=== PATIENT | female | born 1950 | race Caucasian/White ===

== ENCOUNTER → 2016-08-08 | Outpatient (CLI) | payer OTHER ==
[~2016-08-08] MED LIST: AMOX1TAB64 PO; ASCO10007 PO; CALC1CAP8 PO; CETI10CA PO; CHOL2000 PO; CITA40TA12 PO; CYAN25003 PO; DICL100T PO; FLUT9.9S NAS; HYDR-3138 PO; INDO50CA PO; LEVO100T41 PO; LEVO100T5 PO; LOPE1TAB4 PO; LORA-445 PO; LUTE20TA PO; OMEP-110 PO; OMEP20TA62 PO; ONDA8TAB16 SL; OXYC1TAB8 PO; PRED10TA PO; SIMV40TA PO; SIMV5TAB PO; SPIR25TA PO; SPIR25TA3 PO; TEMA30CA6 PO; VITA1CAP PO; VITA400C40 PO; WHEA1POW5 PO; voltaren PO
[2016-08-08 10:26] LABS: HEMOGLOBIN 14.1 g/dL (11.7-16.4)
[2016-08-08 10:43] LABS: BLOOD UREA NITROGEN 11 mg/dL (7-18)
[2016-08-08 10:47] LABS: ASPARTATE AMINO TRANSFERASE 19 U/L (15-37)
[2016-08-08 11:39] LABS: DIFF TOTAL CELLS COUNTED 100 CELL DIFF
[2016-08-08 11:40] LABS: VERIFY COUNTS? YES
== END | disposition home or self-care (01) ==
LOC: LAB 09:59
PROVIDERS: ATTEND Specialist
DX: M35.3 Polymyalgia rheumatica (principal); Z92.25 Personal history of immunosuppression therapy
CPT/HCPCS: 36415; 80053; 85025

== ENCOUNTER → 2016-08-20 | Outpatient (CLI) | payer OTHER ==
[2016-08-20 13:00] LABS: BLOOD UREA NITROGEN 7 mg/dL (7-18)
== END | disposition home or self-care (01) ==
LOC: LAB 12:38
PROVIDERS: ATTEND Family Medicine
DX: E87.1 Hypo-osmolality and hyponatremia (principal)
CPT/HCPCS: 36415; 80048

== ENCOUNTER → 2016-09-06 | Outpatient (CLI) | payer OTHER ==
[2016-09-06 08:24] LABS: ASPARTATE AMINO TRANSFERASE 15 U/L (15-37); BLOOD UREA NITROGEN 12 mg/dL (7-18)
== END | disposition home or self-care (01) ==
LOC: LAB 07:54
PROVIDERS: ATTEND Specialist
DX: M35.3 Polymyalgia rheumatica (principal); Z92.25 Personal history of immunosuppression therapy
CPT/HCPCS: 36415; 80053; 85025

== ENCOUNTER → 2016-10-01 | Outpatient (CLI) | payer OTHER ==
[2016-10-01 12:19] LABS: BLOOD UREA NITROGEN 13 mg/dL (7-18)
[2016-10-01 12:22] LABS: ASPARTATE AMINO TRANSFERASE 24 U/L (15-37)
== END | disposition home or self-care (01) ==
LOC: LAB 09:13
PROVIDERS: ATTEND Family Medicine
DX: E87.1 Hypo-osmolality and hyponatremia (principal)
CPT/HCPCS: 36415; 80053

== ENCOUNTER → 2016-11-20 | Outpatient (CLI) | payer OTHER ==
[~2016-11-20] MED LIST changes: -VITA400C40 PO; +VITA400C43 PO
[2016-11-20 09:20] LABS: ASPARTATE AMINO TRANSFERASE 13 U/L (15-37); BLOOD UREA NITROGEN 25 mg/dL (7-18)
== END | disposition home or self-care (01) ==
LOC: LAB 08:51
PROVIDERS: ATTEND Specialist
DX: M35.3 Polymyalgia rheumatica (principal); Z92.25 Personal history of immunosuppression therapy
CPT/HCPCS: 36415; 80053; 85025

== ENCOUNTER → 2017-01-10 | Outpatient (CLI) | payer OTHER ==
[~2017-01-10] MED LIST changes: +ASCO100019 PO; -ASCO10007 PO; -HYDR-3138 PO; +HYDR-3237 PO; -LEVO100T41 PO; +LEVO100T74 PO
[2017-01-10 09:16] LABS: HEMATOCRIT 37.5 % (34.6-47.8); WHITE BLOOD COUNT 11.2 x10^3/uL (3.4-10)
[2017-01-10 09:27] LABS: ASPARTATE AMINO TRANSFERASE 11 U/L (15-37); BLOOD UREA NITROGEN 19 mg/dL (7-18)
== END | disposition home or self-care (01) ==
LOC: LAB 08:58
PROVIDERS: ATTEND Specialist
DX: M35.3 Polymyalgia rheumatica (principal); Z92.25 Personal history of immunosuppression therapy
CPT/HCPCS: 36415; 80053; 85025

== ENCOUNTER → 2017-04-17 | Outpatient (CLI) | payer OTHER ==
[2017-04-17 09:05] LABS: HEMATOCRIT 36.1 % (34.6-47.8); HEMOGLOBIN 12.4 g/dL (11.7-16.4); WHITE BLOOD COUNT 5.6 x10^3/uL (3.4-10)
[2017-04-17 09:20] LABS: BLOOD UREA NITROGEN 18 mg/dL (7-18)
[2017-04-17 09:23] LABS: ASPARTATE AMINO TRANSFERASE 41 U/L (15-37)
== END | disposition home or self-care (01) ==
LOC: LAB 08:39
PROVIDERS: ATTEND Specialist
DX: M35.3 Polymyalgia rheumatica (principal); Z92.25 Personal history of immunosuppression therapy
CPT/HCPCS: 36415; 80053; 85025

== ENCOUNTER → 2017-06-03 | Outpatient (CLI) | payer OTHER ==
[2017-06-03 08:27] LABS: BASOPHILS # (AUTO) 0.02 x10^3/uL (0-0.1); BASOPHILS % (AUTO) 0 % (0-1); EOSINOPHILS # (AUTO) 0.06 x10^3/uL (0-0.4); EOSINOPHILS % (AUTO) 1 % (1-7); LYMPHOCYTES # (AUTO) 1.16 x10^3/uL (1-3.4); LYMPHOCYTES % (AUTO) 16 % (22-44); MD NO; MEAN CORPUSCULAR HEMOGLOBIN 31.9 pg (27.0-34.8); MEAN CORPUSCULAR HGB CONC 33.3 g/dL (32.4-35.8); MEAN CORPUSCULAR VOLUME 95.6 fL (80-100); MEAN PLATELET VOLUME 7.7 fL (7.4-10.4); MONOCYTES # (AUTO) 0.47 x10^3/uL (0.2-0.8); MONOCYTES % (AUTO) 7 % (2-9); NEUTROPHILS # (AUTO) 5.48 x10^3/uL (1.8-6.8); NEUTROPHILS % (AUTO) 76 % (42-75); PLATELET COUNT 439 x10^3/uL (130-400); RED BLOOD COUNT 4.01 x10^6/uL (3.82-5.3); RED CELL DISTRIBUTION WIDTH 14.2 % (9.6-15.2)
[2017-06-03 08:39] LABS: ALANINE AMINOTRANSFERASE 72 U/L (12-78); ALBUMIN 3.9 g/dL (3.4-5.0); ANION GAP 4 mmol/L (5-15); CALCIUM 8.9 mg/dL (8.5-10.1); CREATININE 1.24 mg/dL (0.55-1.02)
[2017-06-03 08:41] LABS: ALKALINE PHOSPHATASE 76 U/L (45-117); BILIRUBIN,TOTAL 0.4 mg/dL (0.2-1.0); TOTAL PROTEIN 7.3 g/dL (6.4-8.2)
[2017-06-03 09:02] LABS: CHLORIDE 105 mmol/L (98-107)
== END | disposition home or self-care (01) ==
LOC: LAB 08:16
PROVIDERS: ATTEND Specialist
DX: M35.3 Polymyalgia rheumatica (principal); Z92.25 Personal history of immunosuppression therapy
CPT/HCPCS: 36415; 80053; 85025

== ENCOUNTER → 2017-06-18 | Outpatient (CLI) | payer OTHER | END | disposition home or self-care (01) | LOC: CFH 08:00 | PROVIDERS: ATTEND Specialist | DX: Z12.31 Encounter for screening mammogram for malignant neoplasm of breast (principal); Z13.820 Encounter for screening for osteoporosis; M85.88 Other specified disorders of bone density and structure, other site; M81.0 Age-related osteoporosis without current pathological fracture | CPT/HCPCS: 77063; 77080; 77067 ==

== ENCOUNTER → 2017-06-27 | Outpatient (CLI) | payer OTHER | LOC: CVU 14:28 | PROVIDERS: ATTEND Family Medicine | DX: R60.0 Localized edema (principal); I10 Essential (primary) hypertension; E66.9 Obesity, unspecified | CPT/HCPCS: 93306; 93970 ==

== ENCOUNTER → 2017-07-02 | Outpatient (CLI) | payer OTHER ==
[2017-07-02 09:34] LABS: BASOPHILS # (AUTO) 0.03 x10^3/uL (0-0.1); BASOPHILS % (AUTO) 0 % (0-1); EOSINOPHILS # (AUTO) 0.08 x10^3/uL (0-0.4); EOSINOPHILS % (AUTO) 1 % (1-7); LYMPHOCYTES # (AUTO) 1.45 x10^3/uL (1-3.4); LYMPHOCYTES % (AUTO) 18 % (22-44); MD NO; MEAN CORPUSCULAR HEMOGLOBIN 32.3 pg (27.0-34.8); MEAN CORPUSCULAR HGB CONC 33.8 g/dL (32.4-35.8); MEAN CORPUSCULAR VOLUME 95.3 fL (80-100); MEAN PLATELET VOLUME 7.8 fL (7.4-10.4); MONOCYTES # (AUTO) 0.45 x10^3/uL (0.2-0.8); MONOCYTES % (AUTO) 6 % (2-9); NEUTROPHILS # (AUTO) 6.09 x10^3/uL (1.8-6.8); NEUTROPHILS % (AUTO) 75 % (42-75); PLATELET COUNT 478 x10^3/uL (130-400); RED BLOOD COUNT 4.01 x10^6/uL (3.82-5.3); RED CELL DISTRIBUTION WIDTH 13.6 % (9.6-15.2)
[2017-07-02 09:46] LABS: ALANINE AMINOTRANSFERASE 32 U/L (12-78); ALBUMIN 3.8 g/dL (3.4-5.0); ANION GAP 9 mmol/L (5-15); CALCIUM 9.1 mg/dL (8.5-10.1); CHLORIDE 101 mmol/L (98-107); CHOLESTEROL, TOTAL 116 mg/dL (140-239); TRIGLYCERIDES 125 mg/dL (50-200); VLDL CHOLESTEROL 25 mg/dL (0-25)
[2017-07-02 09:48] LABS: ALKALINE PHOSPHATASE 75 U/L (45-117); BILIRUBIN,TOTAL 0.5 mg/dL (0.2-1.0); HDL CHOLESTEROL (DIRECT) 61 mg/dL (40-60); TOTAL PROTEIN 7.4 g/dL (6.4-8.2)
[2017-07-02 13:50] LABS: CHOL/HDL RATIO 1.9; HDL CHOL % 53 % (28-40); LDL CHOLESTEROL,CALCULATED 30 mg/dL (54-169); LDL/HDL RATIO 0.5 (0.5-3.0)
== END ==
LOC: LAB 09:13
PROVIDERS: ATTEND Specialist
DX: M35.3 Polymyalgia rheumatica (principal); E78.5 Hyperlipidemia, unspecified; E83.51 Hypocalcemia; Z92.25 Personal history of immunosuppression therapy
CPT/HCPCS: 36415; 80053; 80061; 85025

== ENCOUNTER → 2017-12-24 | Outpatient (CLI) | payer OTHER ==
[~2017-12-24] MED LIST changes: -INDO50CA PO; +INDO50CA5 PO; -SPIR25TA3 PO; +SPIR25TA5 PO
[2017-12-24 08:22] LABS: BASOPHILS % (AUTO) 0 % (0-1); EOSINOPHILS # (AUTO) 0.14 x10^3/uL (0-0.4); EOSINOPHILS % (AUTO) 2 % (1-7); LYMPHOCYTES # (AUTO) 1.41 x10^3/uL (1-3.4); LYMPHOCYTES % (AUTO) 19 % (22-44); MD NO; MEAN CORPUSCULAR HEMOGLOBIN 32.3 pg (27.0-34.8); MEAN CORPUSCULAR HGB CONC 33.9 g/dL (32.4-35.8); MEAN CORPUSCULAR VOLUME 95.2 fL (80-100); MONOCYTES # (AUTO) 0.24 x10^3/uL (0.2-0.8); MONOCYTES % (AUTO) 3 % (2-9); NEUTROPHILS # (AUTO) 5.76 x10^3/uL (1.8-6.8); NEUTROPHILS % (AUTO) 76 % (42-75); PLATELET COUNT 479 x10^3/uL (130-400); RED BLOOD COUNT 3.65 x10^6/uL (3.82-5.3); RED CELL DISTRIBUTION WIDTH 14.5 % (9.6-15.2)
[2017-12-24 08:35] LABS: ALANINE AMINOTRANSFERASE 77 U/L (12-78); ALBUMIN 3.7 g/dL (3.4-5.0); ANION GAP 7 mmol/L (5-15); CALCIUM 8.3 mg/dL (8.5-10.1); CHLORIDE 103 mmol/L (98-107); CREATININE 1.36 mg/dL (0.55-1.02)
[2017-12-24 08:37] LABS: ALKALINE PHOSPHATASE 140 U/L (45-117); BILIRUBIN,TOTAL 0.3 mg/dL (0.2-1.0); TOTAL PROTEIN 7.8 g/dL (6.4-8.2)
== END | disposition home or self-care (01) ==
LOC: LAB 08:09
PROVIDERS: ATTEND Specialist
DX: E03.9 Hypothyroidism, unspecified (principal); M81.0 Age-related osteoporosis without current pathological fracture; M35.00 Sjogren syndrome, unspecified; M35.3 Polymyalgia rheumatica; Z92.25 Personal history of immunosuppression therapy
CPT/HCPCS: 36415; 80053; 85025

== ENCOUNTER → 2018-02-05 | Outpatient (CLI) | payer OTHER ==
[2018-02-05 11:41] LABS: BASOPHILS # (AUTO) 0.02 x10^3/uL (0-0.1); BASOPHILS % (AUTO) 0 % (0-1); EOSINOPHILS # (AUTO) 0.14 x10^3/uL (0-0.4); EOSINOPHILS % (AUTO) 2 % (1-7); LYMPHOCYTES # (AUTO) 1.64 x10^3/uL (1-3.4); LYMPHOCYTES % (AUTO) 19 % (22-44); MD NO; MEAN CORPUSCULAR HEMOGLOBIN 33.1 pg (27.0-34.8); MEAN CORPUSCULAR HGB CONC 34.2 g/dL (32.4-35.8); MEAN CORPUSCULAR VOLUME 96.8 fL (80-100); MEAN PLATELET VOLUME 7.6 fL (7.4-10.4); MONOCYTES # (AUTO) 0.43 x10^3/uL (0.2-0.8); MONOCYTES % (AUTO) 5 % (2-9); NEUTROPHILS # (AUTO) 6.21 x10^3/uL (1.8-6.8); NEUTROPHILS % (AUTO) 74 % (42-75); PLATELET COUNT 428 x10^3/uL (130-400); RED BLOOD COUNT 3.37 x10^6/uL (3.82-5.3); RED CELL DISTRIBUTION WIDTH 14.8 % (9.6-15.2)
[2018-02-05 11:51] LABS: ALANINE AMINOTRANSFERASE 41 U/L (12-78); ALBUMIN 3.7 g/dL (3.4-5.0); ANION GAP 8 mmol/L (5-15); CALCIUM 8.2 mg/dL (8.5-10.1); CHLORIDE 105 mmol/L (98-107); CREATININE 1.24 mg/dL (0.55-1.02)
[2018-02-05 11:53] LABS: ALKALINE PHOSPHATASE 107 U/L (45-117); BILIRUBIN,TOTAL 0.3 mg/dL (0.2-1.0); TOTAL PROTEIN 7.4 g/dL (6.4-8.2)
== END | disposition home or self-care (01) ==
LOC: LAB 11:16
PROVIDERS: ATTEND Specialist
DX: E03.9 Hypothyroidism, unspecified (principal); M35.00 Sjogren syndrome, unspecified; M35.3 Polymyalgia rheumatica; M81.0 Age-related osteoporosis without current pathological fracture; Z92.25 Personal history of immunosuppression therapy
CPT/HCPCS: 36415; 80053; 85025

== ENCOUNTER → 2018-03-02 | Outpatient (CLI) | payer OTHER ==
[2018-03-02 09:40] LABS: BASOPHILS # (AUTO) 0.02 x10^3/uL (0-0.1); BASOPHILS % (AUTO) 0 % (0-1); EOSINOPHILS # (AUTO) 0.15 x10^3/uL (0-0.4); EOSINOPHILS % (AUTO) 2 % (1-7); LYMPHOCYTES # (AUTO) 1.22 x10^3/uL (1-3.4); LYMPHOCYTES % (AUTO) 16 % (22-44); MD NO; MEAN CORPUSCULAR HEMOGLOBIN 32.4 pg (27.0-34.8); MEAN CORPUSCULAR HGB CONC 33.3 g/dL (32.4-35.8); MEAN CORPUSCULAR VOLUME 97.4 fL (80-100); MEAN PLATELET VOLUME 7.6 fL (7.4-10.4); MONOCYTES # (AUTO) 0.58 x10^3/uL (0.2-0.8); MONOCYTES % (AUTO) 8 % (2-9); NEUTROPHILS # (AUTO) 5.52 x10^3/uL (1.8-6.8); NEUTROPHILS % (AUTO) 74 % (42-75); PLATELET COUNT 416 x10^3/uL (130-400); RED BLOOD COUNT 3.73 x10^6/uL (3.82-5.3)
[2018-03-02 09:54] LABS: IRON LEVEL 70 mcg/dL (50-170)
[2018-03-02 10:20] LABS: % IRON SATURATION 18 % (20-55); FREE T4 (FREE THYROXINE) 1.18 ng/dL (0.76-1.46); TOTAL IRON BINDING CAPACITY 383 mcg/dL (250-450)
[2018-03-02 10:22] LABS: FOLATE LEVEL > 20.0 ng/mL (3.1-17.5)
== END | disposition home or self-care (01) ==
LOC: LAB 09:18
PROVIDERS: ATTEND Family Medicine
DX: D64.9 Anemia, unspecified (principal); E03.9 Hypothyroidism, unspecified
CPT/HCPCS: 36415; 82607; 82728; 82746; 83540; 83550; 84439; 84443; 84480; 85025

== ENCOUNTER → 2018-04-16 | Outpatient (CLI) | payer OTHER ==
[2018-04-16 08:16] LABS: BASOPHILS # (AUTO) 0.01 x10^3/uL (0-0.1); BASOPHILS % (AUTO) 0 % (0-1); EOSINOPHILS # (AUTO) 0.11 x10^3/uL (0-0.4); EOSINOPHILS % (AUTO) 2 % (1-7); LYMPHOCYTES # (AUTO) 1.36 x10^3/uL (1-3.4); LYMPHOCYTES % (AUTO) 18 % (22-44); MD NO; MEAN CORPUSCULAR HEMOGLOBIN 32.7 pg (27.0-34.8); MEAN CORPUSCULAR HGB CONC 33.7 g/dL (32.4-35.8); MEAN CORPUSCULAR VOLUME 96.9 fL (80-100); MEAN PLATELET VOLUME 7.4 fL (7.4-10.4); MONOCYTES # (AUTO) 0.41 x10^3/uL (0.2-0.8); MONOCYTES % (AUTO) 5 % (2-9); NEUTROPHILS % (AUTO) 75 % (42-75); PLATELET COUNT 536 x10^3/uL (130-400); RED BLOOD COUNT 3.68 x10^6/uL (3.82-5.3); RED CELL DISTRIBUTION WIDTH 14.3 % (9.6-15.2)
[2018-04-16 08:29] LABS: ALANINE AMINOTRANSFERASE 63 U/L (12-78); ANION GAP 9 mmol/L (5-15); CALCIUM 8.5 mg/dL (8.5-10.1); CHLORIDE 101 mmol/L (98-107); CREATININE 1.25 mg/dL (0.55-1.02)
[2018-04-16 08:31] LABS: ALKALINE PHOSPHATASE 105 U/L (45-117); BILIRUBIN,TOTAL 0.4 mg/dL (0.2-1.0); TOTAL PROTEIN 7.8 g/dL (6.4-8.2)
== END | disposition home or self-care (01) ==
LOC: LAB 08:06
PROVIDERS: ATTEND Specialist
DX: E03.9 Hypothyroidism, unspecified (principal); M35.00 Sjogren syndrome, unspecified; M35.3 Polymyalgia rheumatica; M81.0 Age-related osteoporosis without current pathological fracture; Z92.25 Personal history of immunosuppression therapy
CPT/HCPCS: 36415; 80053; 85025

== ENCOUNTER → 2018-05-15 | Outpatient (CLI) | payer OTHER ==
[2018-05-15 08:55] LABS: BASOPHILS # (AUTO) 0.02 x10^3/uL (0-0.1); BASOPHILS % (AUTO) 0 % (0-1); EOSINOPHILS # (AUTO) 0.15 x10^3/uL (0-0.4); EOSINOPHILS % (AUTO) 2 % (1-7); LYMPHOCYTES # (AUTO) 1.32 x10^3/uL (1-3.4); LYMPHOCYTES % (AUTO) 17 % (22-44); MD NO; MEAN CORPUSCULAR HEMOGLOBIN 32.3 pg (27.0-34.8); MEAN CORPUSCULAR VOLUME 97.9 fL (80-100); MEAN PLATELET VOLUME 7.6 fL (7.4-10.4); MONOCYTES # (AUTO) 0.38 x10^3/uL (0.2-0.8); MONOCYTES % (AUTO) 5 % (2-9); NEUTROPHILS # (AUTO) 5.79 x10^3/uL (1.8-6.8); NEUTROPHILS % (AUTO) 76 % (42-75); PLATELET COUNT 459 x10^3/uL (130-400); RED BLOOD COUNT 3.59 x10^6/uL (3.82-5.3); RED CELL DISTRIBUTION WIDTH 14.7 % (9.6-15.2)
[2018-05-15 09:07] LABS: ALANINE AMINOTRANSFERASE 51 U/L (12-78); ALBUMIN 3.7 g/dL (3.4-5.0); ANION GAP 5 mmol/L (5-15); CALCIUM 8.8 mg/dL (8.5-10.1); CHLORIDE 104 mmol/L (98-107); CREATININE 1.19 mg/dL (0.55-1.02)
[2018-05-15 09:10] LABS: ALKALINE PHOSPHATASE 98 U/L (45-117); BILIRUBIN,TOTAL 0.7 mg/dL (0.2-1.0); TOTAL PROTEIN 7.4 g/dL (6.4-8.2)
== END | disposition home or self-care (01) ==
LOC: LAB 08:31
PROVIDERS: ATTEND Specialist
DX: M35.00 Sjogren syndrome, unspecified (principal); M35.3 Polymyalgia rheumatica; M81.0 Age-related osteoporosis without current pathological fracture; E03.9 Hypothyroidism, unspecified; Z92.25 Personal history of immunosuppression therapy
CPT/HCPCS: 36415; 80053; 85025

== ENCOUNTER → 2018-07-30 | Outpatient (CLI) | payer OTHER ==
[2018-07-30 11:49] LABS: BASOPHILS # (AUTO) 0.03 x10^3/uL (0-0.1); BASOPHILS % (AUTO) 0 % (0-1); EOSINOPHILS # (AUTO) 0.13 x10^3/uL (0-0.4); EOSINOPHILS % (AUTO) 1 % (1-7); LYMPHOCYTES % (AUTO) 12 % (22-44); MD NO; MEAN CORPUSCULAR HEMOGLOBIN 32.1 pg (27.0-34.8); MEAN CORPUSCULAR VOLUME 97.2 fL (80-100); MEAN PLATELET VOLUME 7.3 fL (7.4-10.4); MONOCYTES # (AUTO) 0.43 x10^3/uL (0.2-0.8); MONOCYTES % (AUTO) 4 % (2-9); NEUTROPHILS # (AUTO) 9.41 x10^3/uL (1.8-6.8); NEUTROPHILS % (AUTO) 83 % (42-75); PLATELET COUNT 550 x10^3/uL (130-400); RED BLOOD COUNT 3.58 x10^6/uL (3.82-5.3); RED CELL DISTRIBUTION WIDTH 14.9 % (9.6-15.2)
[2018-07-30 11:56] LABS: ALANINE AMINOTRANSFERASE 133 U/L (12-78); ALBUMIN 3.5 g/dL (3.4-5.0); ANION GAP 5 mmol/L (5-15); CALCIUM 8.9 mg/dL (8.5-10.1); CHLORIDE 106 mmol/L (98-107); CREATININE 1.03 mg/dL (0.55-1.02)
[2018-07-30 11:58] LABS: ALKALINE PHOSPHATASE 199 U/L (45-117); BILIRUBIN,TOTAL 0.3 mg/dL (0.2-1.0); TOTAL PROTEIN 7.6 g/dL (6.4-8.2)
== END | disposition home or self-care (01) ==
LOC: LAB 11:25
PROVIDERS: ATTEND Family Medicine
DX: M35.3 Polymyalgia rheumatica (principal); M67.241 Synovial hypertrophy, not elsewhere classified, right hand; Z92.25 Personal history of immunosuppression therapy
CPT/HCPCS: 36415; 80053; 85025

== ENCOUNTER → 2018-08-03 | Outpatient (CLI) | payer OTHER ==
[2018-08-03 09:24] LABS: BASOPHILS # (AUTO) 0.01 x10^3/uL (0-0.1); BASOPHILS % (AUTO) 0 % (0-1); EOSINOPHILS # (AUTO) 0.21 x10^3/uL (0-0.4); EOSINOPHILS % (AUTO) 2 % (1-7); LYMPHOCYTES # (AUTO) 1.21 x10^3/uL (1-3.4); LYMPHOCYTES % (AUTO) 12 % (22-44); MD NO; MEAN CORPUSCULAR HEMOGLOBIN 32.2 pg (27.0-34.8); MEAN CORPUSCULAR HGB CONC 33.1 g/dL (32.4-35.8); MEAN CORPUSCULAR VOLUME 97.4 fL (80-100); MEAN PLATELET VOLUME 7.3 fL (7.4-10.4); MONOCYTES # (AUTO) 0.61 x10^3/uL (0.2-0.8); MONOCYTES % (AUTO) 6 % (2-9); NEUTROPHILS # (AUTO) 7.95 x10^3/uL (1.8-6.8); NEUTROPHILS % (AUTO) 80 % (42-75); PLATELET COUNT 504 x10^3/uL (130-400); RED BLOOD COUNT 3.66 x10^6/uL (3.82-5.3); RED CELL DISTRIBUTION WIDTH 15.1 % (9.6-15.2)
[2018-08-03 09:40] LABS: ALBUMIN 3.9 g/dL (3.4-5.0); ANION GAP 7 mmol/L (5-15); C-REACTIVE PROTEIN, QUANT 0.77 mg/dL (0.02-0.49); CALCIUM 9.2 mg/dL (8.5-10.1); CHLORIDE 106 mmol/L (98-107); GAMMA GLUTAMYL TRANSPEPTIDASE 108 U/L (5-55)
[2018-08-03 09:50] LABS: % IRON SATURATION 18 % (20-55); ALANINE AMINOTRANSFERASE 58 U/L (12-78); ALKALINE PHOSPHATASE 165 U/L (45-117); BILIRUBIN,TOTAL 0.3 mg/dL (0.2-1.0); CREATININE 1.31 mg/dL (0.55-1.02); FREE T4 (FREE THYROXINE) 1.51 ng/dL (0.76-1.46); IRON LEVEL 70 mcg/dL (50-170); TOTAL IRON BINDING CAPACITY 390 mcg/dL (250-450)
[2018-08-03 11:05] LABS: HCT (SEDRATE) 35.7 % (34.6-47.8)
== END | disposition home or self-care (01) ==
LOC: LAB 08:53
PROVIDERS: ATTEND Family Medicine
DX: D64.9 Anemia, unspecified (principal); E03.9 Hypothyroidism, unspecified; R94.5 Abnormal results of liver function studies; Z92.25 Personal history of immunosuppression therapy
CPT/HCPCS: 36415; 80053; 80074; 82390; 82728; 82977; 83540; 83550; 84439; 84443; 84480; 85025; 85651; 86038; 86140; 86200; 86225; 86235; 86430

== ENCOUNTER → 2018-09-03 | Outpatient (CLI) | payer OTHER ==
[2018-09-03 08:41] LABS: BASOPHILS # (AUTO) 0.02 x10^3/uL (0-0.1); BASOPHILS % (AUTO) 0 % (0-1); EOSINOPHILS # (AUTO) 0.11 x10^3/uL (0-0.4); EOSINOPHILS % (AUTO) 1 % (1-7); LYMPHOCYTES # (AUTO) 1.08 x10^3/uL (1-3.4); LYMPHOCYTES % (AUTO) 10 % (22-44); MD NO; MEAN CORPUSCULAR HEMOGLOBIN 32.4 pg (27.0-34.8); MEAN CORPUSCULAR HGB CONC 33.4 g/dL (32.4-35.8); MEAN PLATELET VOLUME 7.4 fL (7.4-10.4); MONOCYTES # (AUTO) 0.38 x10^3/uL (0.2-0.8); MONOCYTES % (AUTO) 4 % (2-9); NEUTROPHILS # (AUTO) 9.42 x10^3/uL (1.8-6.8); NEUTROPHILS % (AUTO) 86 % (42-75); PLATELET COUNT 407 x10^3/uL (130-400); RED BLOOD COUNT 3.41 x10^6/uL (3.82-5.3); RED CELL DISTRIBUTION WIDTH 14.5 % (9.6-15.2)
[2018-09-03 08:45] LABS: ALANINE AMINOTRANSFERASE 216 U/L (12-78); ALBUMIN 3.4 g/dL (3.4-5.0); ANION GAP 5 mmol/L (5-15); CALCIUM 8.7 mg/dL (8.5-10.1); CHLORIDE 105 mmol/L (98-107)
[2018-09-03 08:47] LABS: ALKALINE PHOSPHATASE 113 U/L (45-117); BILIRUBIN,TOTAL 0.7 mg/dL (0.2-1.0); TOTAL PROTEIN 7.1 g/dL (6.4-8.2)
== END | disposition home or self-care (01) ==
LOC: LAB 08:18
PROVIDERS: ATTEND Family Medicine
DX: E03.9 Hypothyroidism, unspecified (principal); M35.00 Sjogren syndrome, unspecified; M35.3 Polymyalgia rheumatica; M81.0 Age-related osteoporosis without current pathological fracture; Z92.25 Personal history of immunosuppression therapy
CPT/HCPCS: 36415; 80053; 85025

== ENCOUNTER → 2018-09-30 | Outpatient (CLI) | payer OTHER ==
[2018-09-30 08:44] LABS: MICROSCOPIC NOT IND
[2018-09-30 08:47] LABS: CULTURE INDICATED? NO
[2018-09-30 09:05] LABS: CREATININE,URINE RANDOM 89.7 mg/dL
[2018-09-30 09:11] LABS: ALANINE AMINOTRANSFERASE 45 U/L (12-78); ANION GAP 6 mmol/L (5-15); CHLORIDE 104 mmol/L (98-107); CREATININE 1.35 mg/dL (0.55-1.02)
[2018-09-30 09:12] LABS: BASOPHILS # (AUTO) 0.01 x10^3/uL (0-0.1); BASOPHILS % (AUTO) 0 % (0-1); EOSINOPHILS # (AUTO) 0.08 x10^3/uL (0-0.4); EOSINOPHILS % (AUTO) 1 % (1-7); LYMPHOCYTES # (AUTO) 1.13 x10^3/uL (1-3.4); LYMPHOCYTES % (AUTO) 13 % (22-44); MD NO; MEAN CORPUSCULAR HEMOGLOBIN 32.9 pg (27.0-34.8); MEAN CORPUSCULAR HGB CONC 33.2 g/dL (32.4-35.8); MEAN CORPUSCULAR VOLUME 98.8 fL (80-100); MEAN PLATELET VOLUME 7.8 fL (7.4-10.4); MONOCYTES # (AUTO) 0.33 x10^3/uL (0.2-0.8); MONOCYTES % (AUTO) 4 % (2-9); NEUTROPHILS # (AUTO) 7.31 x10^3/uL (1.8-6.8); NEUTROPHILS % (AUTO) 83 % (42-75); PLATELET COUNT 432 x10^3/uL (130-400); RED BLOOD COUNT 3.61 x10^6/uL (3.82-5.3); RED CELL DISTRIBUTION WIDTH 14.6 % (9.6-15.2)
[2018-09-30 09:13] LABS: ALKALINE PHOSPHATASE 82 U/L (45-117); BILIRUBIN,TOTAL 0.4 mg/dL (0.2-1.0); TOTAL PROTEIN 7.5 g/dL (6.4-8.2)
[2018-09-30 09:57] LABS: HCT (SEDRATE) 35.7 % (34.6-47.8)
[2018-10-01 13:40] LABS: ANA SCREEN POSITIVE (Negative); ANTI-NUCLEAR ANTIBODY PATTERN SPECKLED
== END | disposition home or self-care (01) ==
LOC: LAB 08:13
PROVIDERS: ATTEND Internal Medicine
DX: M35.3 Polymyalgia rheumatica (principal); M67.241 Synovial hypertrophy, not elsewhere classified, right hand; Z92.25 Personal history of immunosuppression therapy
CPT/HCPCS: 36415; 80053; 81003; 82306; 82570; 84156; 85025; 85651; 86038; 86039; 86140; 86160

== ENCOUNTER 2018-10-09 12:33 | Outpatient (CLI) | payer OTHER | END 2018-10-09 23:59 | disposition home or self-care (01) | LOC: CFH 12:33 | PROVIDERS: ATTEND Internal Medicine | DX: J18.9 Pneumonia, unspecified organism (principal) | CPT/HCPCS: 71046 ==

== ENCOUNTER → 2018-10-22 | Outpatient (CLI) | payer OTHER | END | disposition home or self-care (01) | LOC: RAD 08:19 | PROVIDERS: ATTEND Internal Medicine | DX: J84.89 Other specified interstitial pulmonary diseases (principal); J47.9 Bronchiectasis, uncomplicated | CPT/HCPCS: 71250 ==

== ENCOUNTER → 2018-10-26 | Outpatient (CLI) | payer OTHER | END | disposition home or self-care (01) | LOC: CFH 14:05 | PROVIDERS: ATTEND Family Medicine | DX: Z12.31 Encounter for screening mammogram for malignant neoplasm of breast (principal); M85.89 Other specified disorders of bone density and structure, multiple sites; Z78.0 Asymptomatic menopausal state | CPT/HCPCS: 77080; 77067 ==

== ENCOUNTER 2018-10-27 14:07 | Outpatient (CLI) | payer OTHER | END 2018-10-27 23:59 | disposition home or self-care (01) | LOC: CARD 14:07 | PROVIDERS: ATTEND Internal Medicine | DX: R91.8 Other nonspecific abnormal finding of lung field (principal) | CPT/HCPCS: 94060; 94726; 94729 ==

== ENCOUNTER 2019-03-09 08:49 | Outpatient (CLI) | payer OTHER ==
[~2019-03-09 08:49] MED LIST changes: +INDO50CA15 PO; -INDO50CA5 PO
== END 2019-03-09 23:59 | disposition home or self-care (01) ==
LOC: CFH 08:49
PROVIDERS: ATTEND Internal Medicine Critical Care Medicine
DX: J84.9 Interstitial pulmonary disease, unspecified (principal); J84.10 Pulmonary fibrosis, unspecified; K44.9 Diaphragmatic hernia without obstruction or gangrene; J47.9 Bronchiectasis, uncomplicated; Z82.49 Family history of ischemic heart disease and other diseases of the circulatory system; Z80.8 Family history of malignant neoplasm of other organs or systems; Z80.0 Family history of malignant neoplasm of digestive organs; Z82.5 Family history of asthma and other chronic lower respiratory diseases
CPT/HCPCS: 71250

== ENCOUNTER 2019-03-17 08:45 | Outpatient (CLI) | payer OTHER ==
[2019-03-17 09:17] LABS: BASOPHILS # (AUTO) 0.01 x10^3/uL (0-0.1); BASOPHILS % (AUTO) 0 % (0-1); EOSINOPHILS # (AUTO) 0.06 x10^3/uL (0-0.4); EOSINOPHILS % (AUTO) 0 % (1-7); LYMPHOCYTES # (AUTO) 1.24 x10^3/uL (1-3.4); LYMPHOCYTES % (AUTO) 9 % (22-44); MD NO; MEAN CORPUSCULAR HEMOGLOBIN 32.1 pg (27.0-34.8); MEAN CORPUSCULAR HGB CONC 33.4 g/dL (32.4-35.8); MEAN CORPUSCULAR VOLUME 96.1 fL (80-100); MONOCYTES % (AUTO) 4 % (2-9); NEUTROPHILS # (AUTO) 12.34 x10^3/uL (1.8-6.8); NEUTROPHILS % (AUTO) 87 % (42-75); PLATELET COUNT 338 x10^3/uL (130-400); RED BLOOD COUNT 4.07 x10^6/uL (3.82-5.3); RED CELL DISTRIBUTION WIDTH 13.1 % (9.6-15.2)
[2019-03-17 09:20] LABS: HCT (SEDRATE) 39.1 % (34.6-47.8)
[2019-03-17 09:24] LABS: ALANINE AMINOTRANSFERASE 59 U/L (12-78); ALBUMIN 3.6 g/dL (3.4-5.0); ANION GAP 9 mmol/L (5-15); CALCIUM 8.9 mg/dL (8.5-10.1); CHLORIDE 100 mmol/L (98-107); CREATININE 1.14 mg/dL (0.55-1.02)
[2019-03-17 09:26] LABS: ALKALINE PHOSPHATASE 78 U/L (45-117); BILIRUBIN,TOTAL 0.4 mg/dL (0.2-1.0); TOTAL PROTEIN 7.8 g/dL (6.4-8.2)
== END 2019-03-17 23:59 | disposition home or self-care (01) ==
LOC: LAB 08:45
PROVIDERS: ATTEND Internal Medicine
DX: M06.09 Rheumatoid arthritis without rheumatoid factor, multiple sites (principal); M35.00 Sjogren syndrome, unspecified; Z79.899 Other long term (current) drug therapy; Z91.013 Allergy to seafood; Z88.5 Allergy status to narcotic agent
CPT/HCPCS: 36415; 80053; 85025; 85651; 86140

== ENCOUNTER → 2019-04-08 | Outpatient (CLI) | payer OTHER ==
[2019-04-08 10:43] LABS: ALANINE AMINOTRANSFERASE 41 U/L (12-78); ANION GAP 9 mmol/L (5-15); C-REACTIVE PROTEIN, QUANT 0.12 mg/dL (0.02-0.49); CALCIUM 8.8 mg/dL (8.5-10.1); CHLORIDE 100 mmol/L (98-107); CREATININE 1.18 mg/dL (0.55-1.02)
[2019-04-08 10:45] LABS: ALKALINE PHOSPHATASE 60 U/L (45-117); BILIRUBIN,TOTAL 0.4 mg/dL (0.2-1.0); TOTAL PROTEIN 7.7 g/dL (6.4-8.2)
[2019-04-08 11:02] LABS: BASOPHILS # (AUTO) 0.12 x10^3/uL (0-0.1); BASOPHILS % (AUTO) 1 % (0-1); EOSINOPHILS # (AUTO) 0.25 x10^3/uL (0-0.4); EOSINOPHILS % (AUTO) 2 % (1-7); LYMPHOCYTES % (AUTO) 10 % (22-44); MD NO; MEAN CORPUSCULAR HEMOGLOBIN 32.3 pg (27.0-34.8); MEAN CORPUSCULAR HGB CONC 32.8 g/dL (32.4-35.8); MEAN CORPUSCULAR VOLUME 98.4 fL (80-100); MEAN PLATELET VOLUME 8.3 fL (7.4-10.4); MONOCYTES # (AUTO) 0.52 x10^3/uL (0.2-0.8); MONOCYTES % (AUTO) 4 % (2-9); NEUTROPHILS # (AUTO) 12.46 x10^3/uL (1.8-6.8); NEUTROPHILS % (AUTO) 84 % (42-75); PLATELET COUNT 392 x10^3/uL (130-400); RED CELL DISTRIBUTION WIDTH 13.3 % (9.6-15.2)
[2019-04-08 11:07] LABS: HCT (SEDRATE) 41.3 % (34.6-47.8)
== END | disposition home or self-care (01) ==
LOC: LAB 10:14
PROVIDERS: ATTEND Internal Medicine
DX: M06.09 Rheumatoid arthritis without rheumatoid factor, multiple sites (principal); M35.00 Sjogren syndrome, unspecified; Z79.899 Other long term (current) drug therapy
CPT/HCPCS: 36415; 80053; 85025; 85651; 86140

== ENCOUNTER → 2019-04-19 | Outpatient (CLI) | payer OTHER ==
[~2019-04-19] MED LIST changes: +ALEN70TA6 PO; +AMIT25TA PO; +CLOB15CR19 TP; +FOLI-17 PO; +HYDR200T72 PO; +LISI-167 PO; +MULT-658 PO; +PRED10TA14 PO; +SENN1TAB67 PO; +SODI1TAB PO; +VIT1CAPS9 PO
== END | disposition home or self-care (01) ==
LOC: STAR 15:46
PROVIDERS: ATTEND Family Medicine
DX: Z01.810 Encounter for preprocedural cardiovascular examination (principal)
CPT/HCPCS: 93005

== ENCOUNTER → 2019-04-21 | Outpatient (CLI) | payer OTHER ==
[2019-04-21 10:16] LABS: ALANINE AMINOTRANSFERASE 38 U/L (12-78); ALBUMIN 3.8 g/dL (3.4-5.0); ANION GAP 7 mmol/L (5-15); CALCIUM 9.2 mg/dL (8.5-10.1); CHLORIDE 106 mmol/L (98-107); CREATININE 1.29 mg/dL (0.55-1.02)
[2019-04-21 10:19] LABS: ALKALINE PHOSPHATASE 55 U/L (45-117); BILIRUBIN,TOTAL 0.3 mg/dL (0.2-1.0); TOTAL PROTEIN 7.7 g/dL (6.4-8.2)
[2019-04-21 10:19] LABS: CULTURE INDICATED? NO; MICROSCOPIC NOT IND
[2019-04-21 10:48] LABS: INTERNATIONAL NORMALIZED RATIO 0.92 (0.93-1.1); PROTHROMBIN TIME 9.7 Seconds (9.6-11.5)
[2019-04-21 15:16] LABS: MEAN CORPUSCULAR HEMOGLOBIN 32.6 pg (27.0-34.8); MEAN CORPUSCULAR VOLUME 98.9 fL (80-100); MEAN PLATELET VOLUME 8.5 fL (7.4-10.4); PLATELET COUNT 414 x10^3/uL (130-400); RED CELL DISTRIBUTION WIDTH 13.9 % (9.6-15.2)
[2019-04-21 15:45] LABS: BASOPHILS # (AUTO) 0.02 x10^3/uL (0-0.1); BASOPHILS % (AUTO) 0 % (0-1); EOSINOPHILS # (AUTO) 0.13 x10^3/uL (0-0.4); EOSINOPHILS % (AUTO) 1 % (1-7); LYMPHOCYTES # (AUTO) 1.38 x10^3/uL (1-3.4); LYMPHOCYTES % (AUTO) 9 % (22-44); MD SCAN; MONOCYTES # (AUTO) 0.38 x10^3/uL (0.2-0.8); MONOCYTES % (AUTO) 3 % (2-9); NEUTROPHILS # (AUTO) 13.22 x10^3/uL (1.8-6.8); NEUTROPHILS % (AUTO) 87 % (42-75)
[2019-04-21 15:58] LABS: INTERNATIONAL NORMALIZED RATIO 0.95 (0.93-1.1)
== END | disposition home or self-care (01) ==
LOC: STAR 08:57
PROVIDERS: ATTEND Neurological Surgery
CPT/HCPCS: 36415; 71046; 72110; 80053; 81003; 85025; 85610; 85730

== ENCOUNTER → 2019-06-23 | Outpatient (CLI) | payer OTHER ==
[~2019-06-23] MED LIST changes: +AMLO-150 PO; +ERGO500017 PO; +ONDA4TAB13 PO; +OXYC5CAP2 PO; +TAMS-11 PO; +TRAZ50TA66 PO
== END | disposition home or self-care (01) ==
LOC: CFH 13:49
PROVIDERS: ATTEND Registered Nurse Registered Nurse First Assistant
DX: M48.061 Spinal stenosis, lumbar region without neurogenic claudication (principal); M43.16 Spondylolisthesis, lumbar region; M41.86 Other forms of scoliosis, lumbar region
CPT/HCPCS: 72100

== ENCOUNTER → 2019-07-22 | Outpatient (CLI) | payer OTHER ==
[2019-07-22 13:01] LABS: BASOPHILS # (AUTO) 0.04 x10^3/uL (0-0.1); BASOPHILS % (AUTO) 0 % (0-1); EOSINOPHILS # (AUTO) 0.17 x10^3/uL (0-0.4); EOSINOPHILS % (AUTO) 1 % (1-7); LYMPHOCYTES # (AUTO) 2.68 x10^3/uL (1-3.4); LYMPHOCYTES % (AUTO) 21 % (22-44); MD NO; MEAN CORPUSCULAR HEMOGLOBIN 29.4 pg (27.0-34.8); MEAN CORPUSCULAR HGB CONC 32.5 g/dL (32.4-35.8); MEAN CORPUSCULAR VOLUME 90.5 fL (80-100); MEAN PLATELET VOLUME 8.3 fL (7.4-10.4); MONOCYTES # (AUTO) 0.74 x10^3/uL (0.2-0.8); MONOCYTES % (AUTO) 6 % (2-9); NEUTROPHILS # (AUTO) 9.31 x10^3/uL (1.8-6.8); NEUTROPHILS % (AUTO) 72 % (42-75); PLATELET COUNT 422 x10^3/uL (130-400); RED BLOOD COUNT 4.02 x10^6/uL (3.82-5.3); RED CELL DISTRIBUTION WIDTH 18.7 % (9.6-15.2)
[2019-07-22 13:15] LABS: ALANINE AMINOTRANSFERASE 25 U/L (12-78); ALBUMIN 3.3 g/dL (3.4-5.0); ANION GAP 6 mmol/L (5-15); CALCIUM 8.9 mg/dL (8.5-10.1); CHLORIDE 103 mmol/L (98-107); CREATININE 1.06 mg/dL (0.55-1.02)
[2019-07-22 13:25] LABS: ALKALINE PHOSPHATASE 82 U/L (45-117); FREE T4 (FREE THYROXINE) 1.44 ng/dL (0.76-1.46); TOTAL PROTEIN 7.6 g/dL (6.4-8.2)
[2019-07-22 13:26] LABS: BILIRUBIN,TOTAL < 0.1 mg/dL (0.2-1.0)
== END | disposition home or self-care (01) ==
LOC: CFH 10:01
PROVIDERS: ATTEND Family Medicine
DX: J96.00 Acute respiratory failure, unspecified whether with hypoxia or hypercapnia (principal); E03.9 Hypothyroidism, unspecified; D64.9 Anemia, unspecified
CPT/HCPCS: 36415; 80053; 84439; 84443; 84480; 85025

== ENCOUNTER → 2019-09-28 | Outpatient (CLI) | payer OTHER ==
[2019-09-28 11:13] LABS: BASOPHILS # (AUTO) 0.02 x10^3/uL (0-0.1); BASOPHILS % (AUTO) 0 % (0-1); EOSINOPHILS # (AUTO) 0.01 x10^3/uL (0-0.4); EOSINOPHILS % (AUTO) 0 % (1-7); LYMPHOCYTES # (AUTO) 1.38 x10^3/uL (1-3.4); LYMPHOCYTES % (AUTO) 9 % (22-44); MD NO; MEAN CORPUSCULAR HEMOGLOBIN 29.4 pg (27.0-34.8); MEAN CORPUSCULAR HGB CONC 32.5 g/dL (32.4-35.8); MEAN CORPUSCULAR VOLUME 90.7 fL (80-100); MEAN PLATELET VOLUME 7.8 fL (7.4-10.4); MONOCYTES # (AUTO) 0.35 x10^3/uL (0.2-0.8); MONOCYTES % (AUTO) 2 % (2-9); NEUTROPHILS # (AUTO) 13.67 x10^3/uL (1.8-6.8); NEUTROPHILS % (AUTO) 89 % (42-75); PLATELET COUNT 368 x10^3/uL (130-400); RED BLOOD COUNT 4.34 x10^6/uL (3.82-5.3); RED CELL DISTRIBUTION WIDTH 18.2 % (9.6-15.2)
[2019-09-28 11:36] LABS: CHLORIDE 109 mmol/L (98-107)
[2019-09-28 12:45] LABS: % IRON SATURATION 45 % (20-55); ALANINE AMINOTRANSFERASE 32 U/L (12-78); ALBUMIN 3.6 g/dL (3.4-5.0); ALKALINE PHOSPHATASE 73 U/L (45-117); ANION GAP 7 mmol/L (5-15); BILIRUBIN,TOTAL 0.3 mg/dL (0.2-1.0); CHOL/HDL RATIO 2.1; CHOLESTEROL, TOTAL 193 mg/dL (140-239); CREATININE 1.52 mg/dL (0.55-1.02); FREE T4 (FREE THYROXINE) 1.16 ng/dL (0.76-1.46); HDL CHOL % 49 % (28-40); HDL CHOLESTEROL (DIRECT) 94 mg/dL (40-60); IRON LEVEL 167 mcg/dL (50-170); LDL CHOLESTEROL,CALCULATED 80 mg/dL (54-169); LDL/HDL RATIO 0.9 (0.5-3.0); TOTAL IRON BINDING CAPACITY 375 mcg/dL (250-450); TOTAL PROTEIN 7.4 g/dL (6.4-8.2); TRIGLYCERIDES 95 mg/dL (50-200); VLDL CHOLESTEROL 19 mg/dL (0-25)
== END | disposition home or self-care (01) ==
LOC: LAB 10:52
PROVIDERS: ATTEND Family Medicine
DX: E03.9 Hypothyroidism, unspecified (principal); D64.9 Anemia, unspecified; E78.5 Hyperlipidemia, unspecified; N17.0 Acute kidney failure with tubular necrosis
CPT/HCPCS: 36415; 80053; 80061; 82728; 83540; 83550; 84439; 84443; 84480; 85025

== ENCOUNTER → 2019-11-09 | Outpatient (CLI) | payer OTHER ==
[2019-11-09 08:34] LABS: MEAN CORPUSCULAR HEMOGLOBIN 30.6 pg (27.0-34.8); MEAN CORPUSCULAR HGB CONC 32.3 g/dL (32.4-35.8); MEAN CORPUSCULAR VOLUME 94.5 fL (80-100); MEAN PLATELET VOLUME 7.3 fL (7.4-10.4); PLATELET COUNT 385 x10^3/uL (130-400)
[2019-11-09 10:03] LABS: BASOPHILS # (AUTO) 0.07 x10^3/uL (0-0.1); BASOPHILS % (AUTO) 0 % (0-1); EOSINOPHILS # (AUTO) 0.06 x10^3/uL (0-0.4); EOSINOPHILS % (AUTO) 0 % (1-7); LYMPHOCYTES # (AUTO) 2.85 x10^3/uL (1-3.4); LYMPHOCYTES % (AUTO) 17 % (22-44); MD SCAN; MONOCYTES # (AUTO) 0.86 x10^3/uL (0.2-0.8); MONOCYTES % (AUTO) 5 % (2-9); NEUTROPHILS # (AUTO) 12.89 x10^3/uL (1.8-6.8); NEUTROPHILS % (AUTO) 77 % (42-75)
[2019-11-09 12:37] LABS: ALBUMIN 3.5 g/dL (3.4-5.0); ANION GAP 7 mmol/L (5-15); CALCIUM 9.1 mg/dL (8.5-10.1); CHLORIDE 97 mmol/L (98-107)
[2019-11-09 12:49] LABS: ALANINE AMINOTRANSFERASE 25 U/L (12-78); ALKALINE PHOSPHATASE 70 U/L (45-117); BILIRUBIN,TOTAL 0.3 mg/dL (0.2-1.0); CREATININE 1.34 mg/dL (0.55-1.02); FREE T4 (FREE THYROXINE) 1.29 ng/dL (0.76-1.46); TOTAL PROTEIN 7.7 g/dL (6.4-8.2)
== END | disposition home or self-care (01) ==
LOC: LAB 08:07
PROVIDERS: ATTEND Family Medicine
DX: N17.0 Acute kidney failure with tubular necrosis (principal); D64.9 Anemia, unspecified; E03.9 Hypothyroidism, unspecified
CPT/HCPCS: 36415; 80053; 84439; 84443; 84480; 85025

== ENCOUNTER → 2019-11-10 | Outpatient (CLI) | payer OTHER | END | disposition home or self-care (01) | LOC: LAB 09:34 | PROVIDERS: ATTEND Nurse Practitioner Family | DX: D72.829 Elevated white blood cell count, unspecified (principal); Z79.52 Long term (current) use of systemic steroids | CPT/HCPCS: 87086 ==

== ENCOUNTER → 2019-11-17 | Outpatient (CLI) | payer OTHER ==
[2019-11-17 15:14] LABS: BASOPHILS # (AUTO) 0.07 x10^3/uL (0-0.1); BASOPHILS % (AUTO) 1 % (0-1); EOSINOPHILS # (AUTO) 0.02 x10^3/uL (0-0.4); EOSINOPHILS % (AUTO) 0 % (1-7); LYMPHOCYTES # (AUTO) 1.87 x10^3/uL (1-3.4); LYMPHOCYTES % (AUTO) 13 % (22-44); MD NO; MEAN CORPUSCULAR HEMOGLOBIN 31.8 pg (27.0-34.8); MEAN CORPUSCULAR HGB CONC 33.5 g/dL (32.4-35.8); MEAN CORPUSCULAR VOLUME 94.8 fL (80-100); MEAN PLATELET VOLUME 7.7 fL (7.4-10.4); MONOCYTES # (AUTO) 0.71 x10^3/uL (0.2-0.8); MONOCYTES % (AUTO) 5 % (2-9); NEUTROPHILS # (AUTO) 11.92 x10^3/uL (1.8-6.8); NEUTROPHILS % (AUTO) 82 % (42-75); PLATELET COUNT 432 x10^3/uL (130-400); RED BLOOD COUNT 3.75 x10^6/uL (3.82-5.3); RED CELL DISTRIBUTION WIDTH 14.8 % (9.6-15.2)
== END | disposition home or self-care (01) ==
LOC: LAB 14:30
PROVIDERS: ATTEND Nurse Practitioner Family
DX: D64.9 Anemia, unspecified (principal); D72.829 Elevated white blood cell count, unspecified; Z79.52 Long term (current) use of systemic steroids
CPT/HCPCS: 85025

== ENCOUNTER → 2020-01-06 | Outpatient (CLI) | payer OTHER | END | disposition home or self-care (01) | LOC: CFH 14:40 | PROVIDERS: ATTEND Family Medicine | DX: Z12.31 Encounter for screening mammogram for malignant neoplasm of breast (principal) | CPT/HCPCS: 77063; 77067 ==

== ENCOUNTER 2020-02-09 08:51 | Emergency (ER) | payer OTHER ==
[~2020-02-09] VITALS: Ht 165.1 cm; Wt 95.8 kg
[2020-02-09 08:55] VITALS: BP 146/72
== END 2020-02-09 10:25 | disposition home or self-care (01) ==
LOC: ED 09:09
DX: L03.811 Cellulitis of head [any part, except face] (principal); L03.211 Cellulitis of face; I10 Essential (primary) hypertension; K21.9 Gastro-esophageal reflux disease without esophagitis; E78.00 Pure hypercholesterolemia, unspecified; Z90.89 Acquired absence of other organs; Z90.49 Acquired absence of other specified parts of digestive tract; Z86.39 Personal history of other endocrine, nutritional and metabolic disease; Z90.710 Acquired absence of both cervix and uterus
CPT/HCPCS: 99283

== ENCOUNTER → 2020-02-09 | Outpatient (CLI) | payer OTHER ==
[2020-02-09 08:59] LABS: BASOPHILS % (AUTO) 1 % (0-1); EOSINOPHILS % (AUTO) 1 % (1-7); LYMPHOCYTES % (AUTO) 14 % (22-44); MEAN CORPUSCULAR HEMOGLOBIN 31.5 pg (27.0-34.8); MEAN CORPUSCULAR HGB CONC 32.4 g/dL (32.4-35.8); MEAN PLATELET VOLUME 7.7 fL (7.4-10.4); MONOCYTES % (AUTO) 6 % (2-9); NEUTROPHILS % (AUTO) 78 % (42-75); PLATELET COUNT 351 x10^3/uL (130-400); RED BLOOD COUNT 4.02 x10^6/uL (3.82-5.3); RED CELL DISTRIBUTION WIDTH 13.1 % (9.6-15.2)
[2020-02-09 09:05] LABS: MICROSCOPIC NOT IND
[2020-02-09 09:06] LABS: ALANINE AMINOTRANSFERASE 21 U/L (12-78); ALBUMIN 3.5 g/dL (3.4-5.0); ANION GAP 9 mmol/L (5-15); CHLORIDE 108 mmol/L (98-107); CREATININE 1.35 mg/dL (0.55-1.02)
[2020-02-09 09:12] LABS: ALKALINE PHOSPHATASE 69 U/L (45-117); BILIRUBIN,TOTAL 0.2 mg/dL (0.2-1.0); TOTAL PROTEIN 7.6 g/dL (6.4-8.2)
[2020-02-09 10:06] LABS: CREATININE,URINE RANDOM 93.9 mg/dL
[2020-02-09 10:22] LABS: MD SCAN
== END | disposition home or self-care (01) ==
LOC: LAB 08:24
PROVIDERS: ATTEND Internal Medicine
DX: M06.4 Inflammatory polyarthropathy (principal); M35.00 Sjogren syndrome, unspecified; R76.0 Raised antibody titer; Z79.899 Other long term (current) drug therapy
CPT/HCPCS: 36415; 80053; 81003; 82570; 84156; 85025; 85651; 86140

== ENCOUNTER → 2020-02-16 | Outpatient (CLI) | payer OTHER | END | disposition home or self-care (01) | LOC: CFH 12:24 | PROVIDERS: ATTEND Neurological Surgery | DX: M41.86 Other forms of scoliosis, lumbar region (principal); M43.16 Spondylolisthesis, lumbar region | CPT/HCPCS: 72100 ==

== ENCOUNTER 2020-03-20 09:38 | Inpatient (IN) | payer OTHER ==
[~2020-03-20] VITALS: Ht 165.1 cm; Wt 92.1 kg
[~2020-03-20 09:38] MED LIST changes: -ALEN70TA6 PO; +ALEN70TA66 PO
[2020-03-20] MEDS ORDERED: ONDANSETRON 2MG/ML, 2ML IVPush ONE (10:30)
[2020-03-20] MEDS ORDERED: SODIUM CHLORIDE 0.9% 1,000ML IVBOLUS ONE ×2 (10:30→12:00)
[2020-03-20] MEDS ORDERED: KETOROLAC 30 MG/1 ML IVPush ONE (10:30)
[2020-03-20] MEDS ORDERED: KETOROLAC 30 MG/1 ML ONE (10:38)
[2020-03-20] MEDS ORDERED: ONDANSETRON 2MG/ML, 2ML ONE (10:39)
--- NOTE | 2020-03-20 11:21 | NUR ---
piv placede-medicated per emar/pain/nausea/1l ns placed on 2l nc for pox of 88
--- NOTE | 2020-03-20 11:30 | NUR ---
WIth further assessment- room air pox not accurate as patient with condition causing poor blood flow to hands (pox innaccurate). Pox sensor placed on ear and pox 95% on room air
[2020-03-20 11:41] LABS: BASOPHILS % (AUTO) 0 % (0-1); EOSINOPHILS % (AUTO) 0 % (1-7); LYMPHOCYTES % (AUTO) 6 % (22-44); MEAN CORPUSCULAR HEMOGLOBIN 31.2 pg (27.0-34.8); MEAN CORPUSCULAR HGB CONC 33.1 g/dL (32.4-35.8); MEAN PLATELET VOLUME 7.9 fL (7.4-10.4); MONOCYTES % (AUTO) 4 % (2-9); NEUTROPHILS % (AUTO) 90 % (42-75); PLATELET COUNT 350 x10^3/uL (130-400); RED BLOOD COUNT 4.64 x10^6/uL (3.82-5.3); RED CELL DISTRIBUTION WIDTH 12.9 % (9.6-15.2)
[2020-03-20 11:53] LABS: ALBUMIN 3.6 g/dL (3.4-5.0); ANION GAP 11 mmol/L (5-15); CALCIUM 9.5 mg/dL (8.5-10.1); CHLORIDE 93 mmol/L (98-107); CREATININE 1.21 mg/dL (0.55-1.02)
[2020-03-20 12:00] LABS: MD SCAN
[2020-03-20] MEDS ORDERED: CEFTRIAXONE PMX 1GM/50ML 50 ML IV ONE (12:30)
[2020-03-20] MEDS ORDERED: CEFTRIAXONE PMX 1GM/50ML 50 ML ONE (12:33)
--- NOTE | 2020-03-20 12:38 | NUR ---
break rn: abx started after bc drawn. Spo2 100%, oxygen titrated down from 4L nc to 2L nc
[2020-03-20] MEDS ORDERED: LOPERAMIDE HCL PO PRN (13:00)
[2020-03-20] MEDS ORDERED: ONDANSETRON ODT 4 MG PO PRN (13:00)
[2020-03-20] MEDS ORDERED: LABETALOL 5MG/ML, 20ML IVPush PRN (13:00)
[2020-03-20] MEDS: CLOBETASOL PROPIONATE CRM 0.05%, 15GM TP SCH (13:00)
[2020-03-20] MEDS ORDERED: LIDODERM 5% PATCH TD PRN (13:00)
[2020-03-20] MEDS ORDERED: BUTALB/APAP/CAFFEINE 50MG/325MG/40MG PO PRN ×2 (13:00)
[2020-03-20] MEDS ORDERED: ENALAPRILAT 1.25 MG/ML, 2ML IVPush PRN (13:00)
[2020-03-20] MEDS ORDERED: ERGOCALCIFEROL 50,000 UNIT CAPSULE PO SCH (13:00)
[2020-03-20] MEDS ORDERED: CETIRIZINE 10 MG TABLET PO PRN (13:00)
[2020-03-20] MEDS ORDERED: TEMPLATE NON-FORMULARY MED. (Cholecalciferol (Vitamin D3)** (Vitamin D**) 2,000 UNIT) PO SCH (13:00)
[2020-03-20] MEDS ORDERED: GUAIFENESIN/DM 200-20MG, 10ML UDC PO PRN (13:00)
[2020-03-20] MEDS ORDERED: SODIUM CHLORIDE 1 GM TABLET PO PRN (13:00)
[2020-03-20] MEDS ORDERED: BACLOFEN 10 MG TABLET PO PRN (13:00)
[2020-03-20] MEDS ORDERED: [UNRECOGNIZED DRUG - OTHER] PO PRN (13:00)
[2020-03-20] MEDS ORDERED: SIMETHICONE PO PRN (13:00)
[2020-03-20 13:07] LABS: C-REACTIVE PROTEIN, QUANT 8.35 mg/dL (0.02-0.49)
[2020-03-20 13:10] LABS: D-DIMER (DIC) 1.26 ug/mlFEU (0.00-0.52); PROTIME 9.7 Seconds (9.6-11.5)
--- NOTE | 2020-03-20 13:49 | NUR ---
Report received from Bridger CURTIS. Care assumed
--- NOTE | 2020-03-20 14:00 | NUR ---
Moved to hospital bed food ordered Report to Noemy CURTIS
[2020-03-20] MEDS ORDERED: ENOXAPARIN 40 MG/0.4 ML ONE (14:10)
[2020-03-20] MEDS ORDERED: CHOLECALCIFEROL 5,000u TAB ONE (14:10)
[2020-03-20] MEDS ORDERED: ACETAMINOPHEN 325 MG TABLET ONE (14:10)
[2020-03-20] MEDS ORDERED: ZINC SULFATE 220 MG CAPSULE ONE (14:10)
[2020-03-20] MEDS: ENOXAPARIN 40 MG/0.4 ML SQ SCH (14:52)
[2020-03-20] MEDS: ZINC SULFATE 220 MG CAPSULE PO SCH (14:53)
[2020-03-20] MEDS ORDERED: CHOLECALCIFEROL 1,000 UNIT TABLET ONE (14:56)
[2020-03-20] MEDS: ASCORBATE SODIUM 3,000 MG in SODIUM CHLORIDE 0.9% 250 ML IVPB SCH ×2 (15:12→22:01)
[2020-03-20] MEDS: ACETAMINOPHEN 325 MG TABLET PO PRN (15:13)
[2020-03-20 16:10] LABS: HCT (SEDRATE) 43.7 % (34.6-47.8)
[2020-03-20] MEDS: FLUTICASONE/VILANTEROL 100-25MCG/INH INH SCH (17:43)
[2020-03-20 18:52] VITALS: BP 115/75
[2020-03-20] MEDS: DICLOFENAC SODIUM 75 MG TABLET.DR PO SCH (21:00)
[2020-03-20] MEDS: AMITRIPTYLINE 25 MG TABLET PO SCH (22:07)
[2020-03-20] MEDS: HYDROXYCHLOROQUINE 200 MG TABLET PO SCH (22:07)
[2020-03-20] MEDS: TRAZODONE 100MG TABLET PO SCH (22:08)
[2020-03-20] MEDS: SIMVASTATIN 40 MG TABLET PO SCH (22:08)
[2020-03-20] MEDS: DEXAMETHASONE 4 MG TABLET PO SCH (22:08)
[2020-03-20] MEDS: ONDANSETRON ODT 4 MG PO PRN (22:29)
[2020-03-21 01:31] VITALS: BP 103/64
[2020-03-21] MEDS: ASCORBATE SODIUM 3,000 MG in SODIUM CHLORIDE 0.9% 250 ML IVPB SCH ×3 (04:09→18:13)
[2020-03-21] MEDS ORDERED: SPIR50TA PO (04:34)
[2020-03-21] MEDS ORDERED: LISI-167 PO (04:35)
[2020-03-21] MEDS: LEVOTHYROXINE 100 MCG TABLET PO SCH (06:18)
[2020-03-21] MEDS: DEXAMETHASONE 4 MG TABLET PO SCH ×2 (06:32→16:02)
[2020-03-21] MEDS: OMEPRAZOLE 20 MG CAPSULE.DR PO SCH (06:39)
[2020-03-21 07:58] VITALS: BP 111/65
[2020-03-21 08:43] LABS: BASOPHILS % (AUTO) 0 % (0-1); EOSINOPHILS % (AUTO) 0 % (1-7); LYMPHOCYTES % (AUTO) 10 % (22-44); MEAN CORPUSCULAR HEMOGLOBIN 31.5 pg (27.0-34.8); MEAN CORPUSCULAR HGB CONC 33.2 g/dL (32.4-35.8); MEAN PLATELET VOLUME 7.6 fL (7.4-10.4); MONOCYTES % (AUTO) 3 % (2-9); NEUTROPHILS % (AUTO) 87 % (42-75); PLATELET COUNT 347 x10^3/uL (130-400); RED BLOOD COUNT 3.73 x10^6/uL (3.82-5.3)
[2020-03-21 08:48] LABS: MD NO
[2020-03-21 08:53] LABS: ALANINE AMINOTRANSFERASE 30 U/L (12-78); ALBUMIN 2.8 g/dL (3.4-5.0); ANION GAP 10 mmol/L (5-15); CALCIUM 8.5 mg/dL (8.5-10.1); CHLORIDE 102 mmol/L (98-107); CREATININE 1.17 mg/dL (0.55-1.02)
[2020-03-21] MEDS ORDERED: SENNA/DOCUSATE TABLET PO SCH (09:00)
[2020-03-21] MEDS: [UNRECOGNIZED DRUG - OTHER] PO SCH (09:00)
[2020-03-21] MEDS: CLOBETASOL PROPIONATE CRM 0.05%, 15GM TP SCH (09:00)
[2020-03-21 09:03] LABS: ALKALINE PHOSPHATASE 64 U/L (45-117); BILIRUBIN,TOTAL 0.2 mg/dL (0.2-1.0); TOTAL PROTEIN 6.8 g/dL (6.4-8.2)
[2020-03-21] MEDS: SODIUM CHLORIDE 1 GM TABLET PO SCH ×3 (09:21→21:19)
[2020-03-21] MEDS: AMLODIPINE 5 MG TABLET PO SCH (09:21)
[2020-03-21] MEDS: TAMSULOSIN 0.4 MG CAP.ER.24H PO SCH (09:21)
[2020-03-21] MEDS: DICLOFENAC SODIUM 75 MG TABLET.DR PO SCH ×2 (09:21→21:00)
[2020-03-21] MEDS: CITALOPRAM 20 MG TABLET PO SCH (09:21)
[2020-03-21] MEDS: MULTIVITAMIN 1 TABLET PO SCH (09:21)
[2020-03-21] MEDS: HYDROXYCHLOROQUINE 200 MG TABLET PO SCH ×2 (09:21→21:19)
[2020-03-21] MEDS: CHOLECALCIFEROL 1,000 UNIT TABLET PO SCH (09:22)
[2020-03-21] MEDS: SENNA/DOCUSATE TABLET PO SCH (09:22)
[2020-03-21] MEDS: ZINC SULFATE 220 MG CAPSULE PO SCH (09:22)
[2020-03-21] MEDS: ENOXAPARIN 40 MG/0.4 ML SQ SCH (11:49)
[2020-03-21 12:02] VITALS: BP 100/68
[2020-03-21] MEDS: FLUTICASONE/VILANTEROL 100-25MCG/INH INH SCH (12:11)
[2020-03-21] MEDS: ONDANSETRON ODT 4 MG PO PRN (16:05)
[2020-03-21 20:43] VITALS: BP 105/64
[2020-03-21] MEDS: AMITRIPTYLINE 25 MG TABLET PO SCH (21:19)
[2020-03-21] MEDS: TRAZODONE 100MG TABLET PO SCH (21:20)
[2020-03-21] MEDS: SIMVASTATIN 40 MG TABLET PO SCH (21:20)
[2020-03-22 00:16] VITALS: BP 96/58
[2020-03-22] MEDS: ASCORBATE SODIUM 3,000 MG in SODIUM CHLORIDE 0.9% 250 ML IVPB SCH ×4 (00:34→18:01)
[2020-03-22] MEDS: DEXAMETHASONE 4 MG TABLET PO SCH ×2 (06:26→16:16)
[2020-03-22] MEDS: LEVOTHYROXINE 100 MCG TABLET PO SCH (06:26)
[2020-03-22] MEDS: OMEPRAZOLE 20 MG CAPSULE.DR PO SCH (06:26)
[2020-03-22] MEDS: DICLOFENAC SODIUM 75 MG TABLET.DR PO SCH ×2 (08:37→20:46)
[2020-03-22] MEDS: MULTIVITAMIN 1 TABLET PO SCH (08:37)
[2020-03-22] MEDS: SENNA/DOCUSATE TABLET PO SCH (08:37)
[2020-03-22] MEDS: CITALOPRAM 20 MG TABLET PO SCH (08:37)
[2020-03-22] MEDS: SODIUM CHLORIDE 1 GM TABLET PO SCH ×2 (08:37→20:47)
[2020-03-22] MEDS: TAMSULOSIN 0.4 MG CAP.ER.24H PO SCH (08:37)
[2020-03-22] MEDS: HYDROXYCHLOROQUINE 200 MG TABLET PO SCH ×2 (08:37→20:47)
[2020-03-22] MEDS: ZINC SULFATE 220 MG CAPSULE PO SCH (08:37)
[2020-03-22] MEDS: AMLODIPINE 5 MG TABLET PO SCH (08:37)
[2020-03-22] MEDS: CHOLECALCIFEROL 1,000 UNIT TABLET PO SCH (08:38)
[2020-03-22] MEDS: CLOBETASOL PROPIONATE CRM 0.05%, 15GM TP SCH (08:39)
[2020-03-22] MEDS: FLUTICASONE/VILANTEROL 100-25MCG/INH INH SCH (08:39)
[2020-03-22 08:46] VITALS: BP 110/69
[2020-03-22] MEDS: [UNRECOGNIZED DRUG - OTHER] PO SCH (08:58)
[2020-03-22 12:08] VITALS: BP 133/75
[2020-03-22] MEDS: ENOXAPARIN 40 MG/0.4 ML SQ SCH (12:19)
[2020-03-22] MEDS: ACETAMINOPHEN 325 MG TABLET PO PRN (13:38)
[2020-03-22] MEDS: HYDROcodone/APAP 5/325 TABLET PO PRN (16:17)
[2020-03-22 20:15] VITALS: BP 95/55
[2020-03-22 20:44] VITALS: BP 103/64
[2020-03-22] MEDS: TRAZODONE 100MG TABLET PO SCH (20:46)
[2020-03-22] MEDS: AMITRIPTYLINE 25 MG TABLET PO SCH (20:48)
[2020-03-22] MEDS: SIMVASTATIN 40 MG TABLET PO SCH (20:48)
[2020-03-23] MEDS: ASCORBATE SODIUM 3,000 MG in SODIUM CHLORIDE 0.9% 250 ML IVPB SCH ×2 (00:10→06:00)
[2020-03-23 00:11] VITALS: BP 113/66
[2020-03-23 05:24] VITALS: BP 119/60
[2020-03-23] MEDS: LEVOTHYROXINE 100 MCG TABLET PO SCH (06:00)
[2020-03-23] MEDS: OMEPRAZOLE 20 MG CAPSULE.DR PO SCH (07:35)
[2020-03-23] MEDS: DEXAMETHASONE 4 MG TABLET PO SCH (07:35)
[2020-03-23 08:34] LABS: MEAN CORPUSCULAR HGB CONC 32.6 g/dL (32.4-35.8); MEAN PLATELET VOLUME 7.6 fL (7.4-10.4); PLATELET COUNT 444 x10^3/uL (130-400); RED BLOOD COUNT 3.81 x10^6/uL (3.82-5.3); RED CELL DISTRIBUTION WIDTH 13.4 % (9.6-15.2)
[2020-03-23] MEDS: CHOLECALCIFEROL 1,000 UNIT TABLET PO SCH (09:00)
[2020-03-23] MEDS: CLOBETASOL PROPIONATE CRM 0.05%, 15GM TP SCH (09:00)
[2020-03-23 09:05] LABS: ANION GAP 9 mmol/L (5-15); CHLORIDE 111 mmol/L (98-107); CREATININE 1.27 mg/dL (0.55-1.02)
[2020-03-23 09:19] LABS: MD YES
[2020-03-23 09:22] LABS: <PLATELET ESTIMATE> INCREASED; <RBC MORPHOLOGY> NORMAL; MONOS#(MANUAL) 0.44 x10^3/uL (0.3-2.7); MONOS% (MANUAL) 2 % (2-9); SEG#(MANUAL) 21.66 x10^3/uL (1.8-6.8); SEGS% (MANUAL) 98 % (42-75)
[2020-03-23 09:23] LABS: <PLT MORPHOLOGY> NORMAL PLT MORPH
[2020-03-23] MEDS: [UNRECOGNIZED DRUG - OTHER] PO SCH (09:28)
[2020-03-23] MEDS ORDERED: REMDESIVIR 200 MG in SODIUM CHLORIDE 0.9% 250 ML IVPB ONE (09:30)
[2020-03-23] MEDS: ZINC SULFATE 220 MG CAPSULE PO SCH (09:32)
[2020-03-23] MEDS: SODIUM CHLORIDE 1 GM TABLET PO SCH ×2 (09:32→20:05)
[2020-03-23] MEDS: DICLOFENAC SODIUM 75 MG TABLET.DR PO SCH ×3 (09:32→20:11)
[2020-03-23] MEDS: SENNA/DOCUSATE TABLET PO SCH (09:32)
[2020-03-23] MEDS: CITALOPRAM 20 MG TABLET PO SCH (09:32)
[2020-03-23] MEDS: MULTIVITAMIN 1 TABLET PO SCH (09:33)
[2020-03-23] MEDS: AMLODIPINE 5 MG TABLET PO SCH (09:33)
[2020-03-23] MEDS: CHOLECALCIFEROL 5,000u TAB PO SCH (09:33)
[2020-03-23] MEDS: FLUTICASONE/VILANTEROL 100-25MCG/INH INH SCH ×2 (09:34→11:25)
[2020-03-23] MEDS: TAMSULOSIN 0.4 MG CAP.ER.24H PO SCH (09:36)
[2020-03-23] MEDS ORDERED: FUROSEMIDE 40 MG/4 ML IV ONE (10:00)
[2020-03-23] MEDS ORDERED: DEXAMETHASONE 4 MG/ML, 1ML ONE (11:51)
[2020-03-23] MEDS: ASCORBIC ACID 500 MG TABLET PO SCH ×2 (11:54→16:08)
[2020-03-23] MEDS: DEXAMETHASONE 4 MG/ML, 5ML IV SCH (11:54)
[2020-03-23] MEDS: ENOXAPARIN 40 MG/0.4 ML SQ SCH (11:55)
[2020-03-23] MEDS: AMITRIPTYLINE 25 MG TABLET PO SCH (20:05)
[2020-03-23] MEDS: SIMVASTATIN 40 MG TABLET PO SCH (20:05)
[2020-03-23] MEDS: TRAZODONE 100MG TABLET PO SCH (20:05)
[2020-03-24 04:11] VITALS: BP 120/59
[2020-03-24 04:52] LABS: ALANINE AMINOTRANSFERASE 34 U/L (12-78); ALBUMIN 2.5 g/dL (3.4-5.0); ANION GAP 7 mmol/L (5-15); CALCIUM 8.2 mg/dL (8.5-10.1); CHLORIDE 109 mmol/L (98-107); CREATININE 1.41 mg/dL (0.55-1.02)
[2020-03-24 04:55] LABS: ALKALINE PHOSPHATASE 95 U/L (45-117); BILIRUBIN,TOTAL 0.3 mg/dL (0.2-1.0); TOTAL PROTEIN 6.5 g/dL (6.4-8.2)
[2020-03-24] MEDS: LEVOTHYROXINE 100 MCG TABLET PO SCH (06:08)
[2020-03-24] MEDS ORDERED: DEXAMETHASONE 4 MG/ML, 1ML ONE (08:36)
[2020-03-24] MEDS: OMEPRAZOLE 20 MG CAPSULE.DR PO SCH (08:51)
[2020-03-24] MEDS: [UNRECOGNIZED DRUG - OTHER] PO SCH (08:52)
[2020-03-24] MEDS: DEXAMETHASONE 4 MG/ML, 5ML IV SCH (08:52)
[2020-03-24] MEDS: ASCORBIC ACID 500 MG TABLET PO SCH ×3 (08:52→15:43)
[2020-03-24] MEDS: ZINC SULFATE 220 MG CAPSULE PO SCH (08:52)
[2020-03-24] MEDS: CHOLECALCIFEROL 5,000u TAB PO SCH (08:53)
[2020-03-24] MEDS: SODIUM CHLORIDE 1 GM TABLET PO SCH ×2 (08:53→19:44)
[2020-03-24] MEDS: CITALOPRAM 20 MG TABLET PO SCH (08:53)
[2020-03-24] MEDS: AMLODIPINE 5 MG TABLET PO SCH (08:53)
[2020-03-24] MEDS: TAMSULOSIN 0.4 MG CAP.ER.24H PO SCH (08:53)
[2020-03-24] MEDS: SENNA/DOCUSATE TABLET PO SCH (08:53)
[2020-03-24] MEDS: MULTIVITAMIN 1 TABLET PO SCH (08:54)
[2020-03-24] MEDS: CLOBETASOL PROPIONATE CRM 0.05%, 15GM TP SCH (08:54)
[2020-03-24] MEDS: DICLOFENAC SODIUM 75 MG TABLET.DR PO SCH ×2 (08:54→19:44)
[2020-03-24] MEDS: REMDESIVIR 100 MG in SODIUM CHLORIDE 0.9% 250 ML IVPB SCH (10:19)
[2020-03-24] MEDS: ENOXAPARIN 40 MG/0.4 ML SQ SCH (14:14)
[2020-03-24] MEDS: HYDROcodone/APAP 5/325 TABLET PO PRN (15:43)
[2020-03-24] MEDS: AMITRIPTYLINE 25 MG TABLET PO SCH (19:44)
[2020-03-24] MEDS: SIMVASTATIN 40 MG TABLET PO SCH (19:44)
[2020-03-24] MEDS: TRAZODONE 100MG TABLET PO SCH (19:44)
[2020-03-25 04:59] LABS: ALBUMIN 2.6 g/dL (3.4-5.0); ANION GAP 5 mmol/L (5-15); CALCIUM 8.5 mg/dL (8.5-10.1); CHLORIDE 112 mmol/L (98-107)
[2020-03-25 05:02] VITALS: BP 142/74
[2020-03-25 05:02] LABS: ALANINE AMINOTRANSFERASE 41 U/L (12-78); ALKALINE PHOSPHATASE 125 U/L (45-117); BILIRUBIN,TOTAL 0.5 mg/dL (0.2-1.0); CREATININE 1.18 mg/dL (0.55-1.02); TOTAL PROTEIN 6.9 g/dL (6.4-8.2)
[2020-03-25] MEDS: LEVOTHYROXINE 100 MCG TABLET PO SCH (06:11)
[2020-03-25] MEDS: HYDROcodone/APAP 5/325 TABLET PO PRN (06:25)
[2020-03-25 07:13] LABS: MEAN CORPUSCULAR HEMOGLOBIN 31.2 pg (27.0-34.8); MEAN CORPUSCULAR HGB CONC 32.7 g/dL (32.4-35.8); MEAN PLATELET VOLUME 7.5 fL (7.4-10.4); PLATELET COUNT 390 x10^3/uL (130-400); RED BLOOD COUNT 3.85 x10^6/uL (3.82-5.3); RED CELL DISTRIBUTION WIDTH 13.5 % (9.6-15.2)
[2020-03-25] MEDS: OMEPRAZOLE 20 MG CAPSULE.DR PO SCH (07:25)
[2020-03-25] MEDS: ASCORBIC ACID 500 MG TABLET PO SCH ×3 (07:25→15:21)
[2020-03-25 08:12] LABS: MD YES
[2020-03-25 08:16] LABS: BAND#(MANUAL) 0.69 x10^3/uL; BANDS%(MANUAL) 3 % (0-7); LYMPH#(MANUAL) 0.69 x10^3/uL (1-3.4); LYMPHS% (MANUAL) 3 % (22-44); MONOS#(MANUAL) 0.23 x10^3/uL (0.3-2.7); MONOS% (MANUAL) 1 % (2-9); SEGS% (MANUAL) 93 % (42-75)
[2020-03-25 08:17] LABS: <PLATELET ESTIMATE> ADEQUATE; <PLT MORPHOLOGY> NORMAL PLT MORPH; <RBC MORPHOLOGY> NORMAL
[2020-03-25] MEDS ORDERED: DEXAMETHASONE 4 MG/ML, 1ML ONE (08:50)
[2020-03-25] MEDS: DEXAMETHASONE 4 MG/ML, 5ML IV SCH (09:00)
[2020-03-25] MEDS: [UNRECOGNIZED DRUG - OTHER] PO SCH (09:00)
[2020-03-25] MEDS ORDERED: FUROSEMIDE 40 MG/4 ML IV ONE (09:00)
[2020-03-25] MEDS: CITALOPRAM 20 MG TABLET PO SCH (09:19)
[2020-03-25] MEDS: SODIUM CHLORIDE 1 GM TABLET PO SCH ×2 (09:20→20:06)
[2020-03-25] MEDS: AMLODIPINE 5 MG TABLET PO SCH (09:20)
[2020-03-25] MEDS: MULTIVITAMIN 1 TABLET PO SCH (09:20)
[2020-03-25] MEDS: ZINC SULFATE 220 MG CAPSULE PO SCH (09:20)
[2020-03-25] MEDS: TAMSULOSIN 0.4 MG CAP.ER.24H PO SCH (09:20)
[2020-03-25] MEDS: SENNA/DOCUSATE TABLET PO SCH (09:20)
[2020-03-25] MEDS: DICLOFENAC SODIUM 75 MG TABLET.DR PO SCH ×2 (09:20→20:06)
[2020-03-25] MEDS: CHOLECALCIFEROL 5,000u TAB PO SCH (09:20)
[2020-03-25] MEDS: FLUTICASONE/VILANTEROL 100-25MCG/INH INH SCH (09:21)
[2020-03-25] MEDS: CLOBETASOL PROPIONATE CRM 0.05%, 15GM TP SCH (09:21)
[2020-03-25] MEDS: REMDESIVIR 100 MG in SODIUM CHLORIDE 0.9% 250 ML IVPB SCH (10:06)
[2020-03-25] MEDS: ENOXAPARIN 40 MG/0.4 ML SQ SCH (12:19)
[2020-03-25] MEDS: ACETAMINOPHEN 325 MG TABLET PO PRN (16:17)
[2020-03-25] MEDS: SIMVASTATIN 40 MG TABLET PO SCH (20:06)
[2020-03-25] MEDS: TRAZODONE 100MG TABLET PO SCH (20:07)
[2020-03-25] MEDS: AMITRIPTYLINE 25 MG TABLET PO SCH (20:07)
[2020-03-26 04:00] VITALS: BP 117/55
[2020-03-26] MEDS: LEVOTHYROXINE 100 MCG TABLET PO SCH (04:40)
[2020-03-26 05:02] LABS: MEAN CORPUSCULAR HEMOGLOBIN 31.2 pg (27.0-34.8); MEAN CORPUSCULAR HGB CONC 33.1 g/dL (32.4-35.8); MEAN PLATELET VOLUME 8.3 fL (7.4-10.4); PLATELET COUNT 347 x10^3/uL (130-400); RED BLOOD COUNT 3.89 x10^6/uL (3.82-5.3); RED CELL DISTRIBUTION WIDTH 13.1 % (9.6-15.2)
[2020-03-26 05:37] LABS: ALANINE AMINOTRANSFERASE 34 U/L (12-78); ALBUMIN 2.7 g/dL (3.4-5.0); ANION GAP 3 mmol/L (5-15); CALCIUM 9.2 mg/dL (8.5-10.1); CHLORIDE 108 mmol/L (98-107); CREATININE 1.29 mg/dL (0.55-1.02)
[2020-03-26 05:39] LABS: ALKALINE PHOSPHATASE 133 U/L (45-117); BILIRUBIN,TOTAL 0.5 mg/dL (0.2-1.0); TOTAL PROTEIN 6.9 g/dL (6.4-8.2)
[2020-03-26 05:48] LABS: MD YES
[2020-03-26 05:49] LABS: BAND#(MANUAL) 0.24 x10^3/uL; BANDS%(MANUAL) 1 % (0-7); LYMPH#(MANUAL) 0.48 x10^3/uL (1-3.4); LYMPHS% (MANUAL) 2 % (22-44); METAMYELOCYTES# (MANUAL) 0.24 x10^3/uL (0-0); METAMYELOCYTES% (MANUAL) 1 % (0-1); MONOS#(MANUAL) 0.48 x10^3/uL (0.3-2.7); MONOS% (MANUAL) 2 % (2-9); SEG#(MANUAL) 22.47 x10^3/uL (1.8-6.8); SEGS% (MANUAL) 94 % (42-75)
[2020-03-26 05:50] LABS: <PLATELET ESTIMATE> ADEQUATE; <PLT MORPHOLOGY> NORMAL PLT MORPH; <RBC MORPHOLOGY> NORMAL
[2020-03-26] MEDS: OMEPRAZOLE 20 MG CAPSULE.DR PO SCH (06:16)
[2020-03-26] MEDS: ASCORBIC ACID 500 MG TABLET PO SCH ×3 (06:16→17:36)
[2020-03-26] MEDS: [UNRECOGNIZED DRUG - OTHER] PO SCH (07:57)
[2020-03-26] MEDS: SENNA/DOCUSATE TABLET PO SCH (07:57)
[2020-03-26] MEDS: DICLOFENAC SODIUM 75 MG TABLET.DR PO SCH ×2 (09:00→20:05)
[2020-03-26] MEDS: CLOBETASOL PROPIONATE CRM 0.05%, 15GM TP SCH (09:00)
[2020-03-26] MEDS: ZINC SULFATE 220 MG CAPSULE PO SCH (09:36)
[2020-03-26] MEDS: ONDANSETRON 2MG/ML, 2ML IVPush PRN ×2 (09:36→17:36)
[2020-03-26] MEDS: CITALOPRAM 20 MG TABLET PO SCH (09:36)
[2020-03-26] MEDS: AMLODIPINE 5 MG TABLET PO SCH (09:36)
[2020-03-26] MEDS: TAMSULOSIN 0.4 MG CAP.ER.24H PO SCH (09:36)
[2020-03-26] MEDS: MULTIVITAMIN 1 TABLET PO SCH (09:36)
[2020-03-26] MEDS: DEXAMETHASONE 4 MG/ML, 5ML IV SCH (09:36)
[2020-03-26] MEDS: FLUTICASONE/VILANTEROL 100-25MCG/INH INH SCH (09:37)
[2020-03-26] MEDS: CHOLECALCIFEROL 5,000u TAB PO SCH (09:56)
[2020-03-26] MEDS ORDERED: FUROSEMIDE 40 MG/4 ML IV ONE (10:00)
[2020-03-26] MEDS: REMDESIVIR 100 MG in SODIUM CHLORIDE 0.9% 250 ML IVPB SCH (10:19)
[2020-03-26] MEDS: SODIUM CHLORIDE 1 GM TABLET PO SCH ×2 (10:19→21:21)
[2020-03-26] MEDS: FUROSEMIDE 40 MG/4 ML IV SCH (10:19)
[2020-03-26] MEDS: ENOXAPARIN 40 MG/0.4 ML SQ SCH (12:58)
[2020-03-26] MEDS: SIMVASTATIN 40 MG TABLET PO SCH (20:04)
[2020-03-26] MEDS: TRAZODONE 100MG TABLET PO SCH (20:04)
[2020-03-26] MEDS: AMITRIPTYLINE 25 MG TABLET PO SCH (20:07)
[2020-03-27 03:50] VITALS: BP 129/71
[2020-03-27] MEDS: LEVOTHYROXINE 100 MCG TABLET PO SCH (05:13)
[2020-03-27] MEDS: OMEPRAZOLE 20 MG CAPSULE.DR PO SCH (05:13)
[2020-03-27 05:21] LABS: ALANINE AMINOTRANSFERASE 26 U/L (12-78); ALBUMIN 2.5 g/dL (3.4-5.0); ANION GAP 8 mmol/L (5-15); CALCIUM 9.3 mg/dL (8.5-10.1); CHLORIDE 105 mmol/L (98-107); CREATININE 1.03 mg/dL (0.55-1.02)
[2020-03-27 05:22] LABS: MEAN CORPUSCULAR HEMOGLOBIN 31.5 pg (27.0-34.8); MEAN CORPUSCULAR HGB CONC 33.3 g/dL (32.4-35.8); PLATELET COUNT 366 x10^3/uL (130-400); RED BLOOD COUNT 3.61 x10^6/uL (3.82-5.3); RED CELL DISTRIBUTION WIDTH 13.5 % (9.6-15.2)
[2020-03-27 05:23] LABS: ALKALINE PHOSPHATASE 108 U/L (45-117); BILIRUBIN,TOTAL 0.6 mg/dL (0.2-1.0); TOTAL PROTEIN 6.5 g/dL (6.4-8.2)
[2020-03-27 05:55] LABS: MD YES
[2020-03-27 05:58] LABS: <PLATELET ESTIMATE> ADEQUATE; <PLT MORPHOLOGY> NORMAL PLT MORPH; <RBC MORPHOLOGY> NORMAL; BAND#(MANUAL) 0.24 x10^3/uL; BANDS%(MANUAL) 1 % (0-7); LYMPH#(MANUAL) 0.47 x10^3/uL (1-3.4); LYMPHS% (MANUAL) 2 % (22-44); MONOS#(MANUAL) 0.47 x10^3/uL (0.3-2.7); MONOS% (MANUAL) 2 % (2-9); MYELOCYTES# (MANUAL) 0.24 x10^3/uL (0-0); MYELOCYTES% (MANUAL) 1 % (0-0); SEG#(MANUAL) 22.18 x10^3/uL (1.8-6.8); SEGS% (MANUAL) 94 % (42-75)
[2020-03-27] MEDS: [UNRECOGNIZED DRUG - OTHER] PO SCH (07:09)
[2020-03-27] MEDS: DICLOFENAC SODIUM 75 MG TABLET.DR PO SCH ×2 (07:09→20:26)
[2020-03-27] MEDS: FUROSEMIDE 40 MG/4 ML IV SCH (08:26)
[2020-03-27] MEDS: ZINC SULFATE 220 MG CAPSULE PO SCH (08:26)
[2020-03-27] MEDS: CITALOPRAM 20 MG TABLET PO SCH (08:26)
[2020-03-27] MEDS: ASCORBIC ACID 500 MG TABLET PO SCH ×3 (08:26→16:15)
[2020-03-27] MEDS: MULTIVITAMIN 1 TABLET PO SCH (08:26)
[2020-03-27] MEDS: AMLODIPINE 5 MG TABLET PO SCH (08:26)
[2020-03-27] MEDS: TAMSULOSIN 0.4 MG CAP.ER.24H PO SCH (08:26)
[2020-03-27] MEDS: CLOBETASOL PROPIONATE CRM 0.05%, 15GM TP SCH (08:27)
[2020-03-27] MEDS: FLUTICASONE/VILANTEROL 100-25MCG/INH INH SCH (08:27)
[2020-03-27] MEDS: CHOLECALCIFEROL 5,000u TAB PO SCH (08:27)
[2020-03-27] MEDS: DEXAMETHASONE 4 MG/ML, 5ML IV SCH (08:29)
[2020-03-27] MEDS: SENNA/DOCUSATE TABLET PO SCH (08:29)
[2020-03-27] MEDS: SODIUM CHLORIDE 1 GM TABLET PO SCH ×2 (09:00→20:26)
[2020-03-27] MEDS ORDERED: FENTANYL PF 100 MCG/2ML ONE (10:27)
[2020-03-27] MEDS: PROPOFOL 100 ML IV PRN ×3 (10:28→20:27)
[2020-03-27] MEDS ORDERED: SENNA/DOCUSATE TABLET NG PRN (10:30)
[2020-03-27] MEDS ORDERED: SENNA 176 MG/5 ML ORAL SOL NG PRN (10:30)
[2020-03-27] MEDS ORDERED: LIDOCAINE-MPF 1%, 2ML ENDO PRN (10:30)
[2020-03-27] MEDS ORDERED: FENTANYL PF 1,000 MCG in SODIUM CHLORIDE 0.9% 80 ML IV PRN (10:30)
[2020-03-27] MEDS ORDERED: GLUCAGON 1 MG IM PRN (10:30)
[2020-03-27] MEDS ORDERED: DEXTROSE 4 GM TAB.CHEW PO PRN (10:30)
[2020-03-27] MEDS ORDERED: ONDANSETRON 2MG/ML, 2ML IV PRN (10:30)
[2020-03-27] MEDS ORDERED: DEXTROSE 50%, 50ML SYRINGE IVPush PRN (10:30)
[2020-03-27] MEDS ORDERED: BISACODYL 10 MG SUPP PR PRN (10:30)
[2020-03-27] MEDS: SODIUM CHLORIDE FLUSH 10ML SYR IVF SCH ×2 (10:30→20:26)
[2020-03-27] MEDS ORDERED: PHARMACY MAY ADJ FOR RENAL FX MC SCH (10:30)
[2020-03-27] MEDS ORDERED: LACTULOSE 20 GM/30 ML UDC NG PRN (10:30)
[2020-03-27 10:53] LABS: TRIGLYCERIDES 109 mg/dL (50-200)
[2020-03-27 10:55] LABS: TROPONIN I < 0.015 ng/mL (0.000-0.045)
[2020-03-27] MEDS ORDERED: MIDAZOLAM 1 MG/ML, 5ML IVPush ONE (11:00)
[2020-03-27] MEDS ORDERED: FENTANYL PF 100 MCG/2ML IVPush ONE (11:00)
[2020-03-27] MEDS ORDERED: ETOMIDATE 20 MG/10 ML IVPush ONE (11:00)
[2020-03-27] MEDS: REMDESIVIR 100 MG in SODIUM CHLORIDE 0.9% 250 ML IVPB SCH (11:11)
[2020-03-27] MEDS: ENOXAPARIN 40 MG/0.4 ML SQ SCH (11:53)
[2020-03-27 16:46] LABS: TROPONIN I < 0.015 ng/mL (0.000-0.045)
[2020-03-27] MEDS ORDERED: PROPOFOL 10 MG/ML, 100ML IV ONE (19:18)
[2020-03-27] MEDS ORDERED: MIDAZOLAM 1 MG/ML, 5ML ONE (19:18)
[2020-03-27] MEDS ORDERED: ETOMIDATE 20 MG/10 ML ONE (19:18)
[2020-03-27] MEDS: TRAZODONE 100MG TABLET PO SCH (20:26)
[2020-03-27] MEDS: SIMVASTATIN 40 MG TABLET PO SCH (20:26)
[2020-03-27] MEDS: AMITRIPTYLINE 25 MG TABLET PO SCH (20:26)
[2020-03-27 23:18] LABS: TROPONIN I < 0.015 ng/mL (0.000-0.045)
[2020-03-28 04:00] VITALS: BP 102/50
[2020-03-28] MEDS: PROPOFOL 100 ML IV PRN ×3 (04:21→19:58)
[2020-03-28] MEDS: LEVOTHYROXINE 100 MCG TABLET PO SCH (04:21)
[2020-03-28 04:47] LABS: ALBUMIN 2.3 g/dL (3.4-5.0); ANION GAP 6 mmol/L (5-15); CALCIUM 8.8 mg/dL (8.5-10.1); CHLORIDE 104 mmol/L (98-107)
[2020-03-28 04:49] LABS: ALANINE AMINOTRANSFERASE 22 U/L (12-78); ALKALINE PHOSPHATASE 94 U/L (45-117); BILIRUBIN,TOTAL 0.4 mg/dL (0.2-1.0); CREATININE 1.15 mg/dL (0.55-1.02); TOTAL PROTEIN 6.5 g/dL (6.4-8.2)
[2020-03-28 04:53] LABS: MEAN CORPUSCULAR HGB CONC 32.8 g/dL (32.4-35.8); MEAN PLATELET VOLUME 8.3 fL (7.4-10.4); PLATELET COUNT 316 x10^3/uL (130-400); RED CELL DISTRIBUTION WIDTH 13.2 % (9.6-15.2)
[2020-03-28 05:53] LABS: MD YES
[2020-03-28 05:54] LABS: <RBC MORPHOLOGY> NORMAL; LYMPH#(MANUAL) 0.76 x10^3/uL (1-3.4); LYMPHS% (MANUAL) 3 % (22-44); METAMYELOCYTES# (MANUAL) 0.76 x10^3/uL (0-0); METAMYELOCYTES% (MANUAL) 3 % (0-1); MONOS#(MANUAL) 0.51 x10^3/uL (0.3-2.7); MONOS% (MANUAL) 2 % (2-9); SEG#(MANUAL) 23.37 x10^3/uL (1.8-6.8); SEGS% (MANUAL) 92 % (42-75)
[2020-03-28 05:55] LABS: <PLATELET ESTIMATE> ADEQUATE; <PLT MORPHOLOGY> NORMAL PLT MORPH
[2020-03-28] MEDS: DICLOFENAC SODIUM 75 MG TABLET.DR PO SCH ×2 (07:27→19:59)
[2020-03-28] MEDS: [UNRECOGNIZED DRUG - OTHER] PO SCH (07:27)
[2020-03-28] MEDS: CLOBETASOL PROPIONATE CRM 0.05%, 15GM TP SCH (07:27)
[2020-03-28] MEDS ORDERED: METHYLNALTREXONE 12 MG/0.6 ML SYR SQ SCH (09:00)
[2020-03-28] MEDS: DEXAMETHASONE 4 MG/ML, 5ML IV SCH (09:34)
[2020-03-28] MEDS: FUROSEMIDE 40 MG/4 ML IV SCH (09:35)
[2020-03-28] MEDS: TAMSULOSIN 0.4 MG CAP.ER.24H PO SCH (09:35)
[2020-03-28] MEDS: AMLODIPINE 5 MG TABLET PO SCH (09:35)
[2020-03-28] MEDS: SENNA/DOCUSATE TABLET PO SCH (09:35)
[2020-03-28] MEDS: ZINC SULFATE 220 MG CAPSULE PO SCH (09:35)
[2020-03-28] MEDS: MULTIVITAMIN 1 TABLET PO SCH (09:36)
[2020-03-28] MEDS: CITALOPRAM 20 MG TABLET PO SCH (09:36)
[2020-03-28] MEDS: ASCORBIC ACID 500 MG TABLET PO SCH ×3 (09:36→16:42)
[2020-03-28] MEDS: CHOLECALCIFEROL 5,000u TAB PO SCH (09:37)
[2020-03-28] MEDS: SODIUM CHLORIDE 1 GM TABLET PO SCH ×2 (09:37→19:59)
[2020-03-28] MEDS: SODIUM CHLORIDE FLUSH 10ML SYR IVF SCH ×2 (09:37→20:00)
[2020-03-28] MEDS: PANTOPRAZOLE 40 MG IV IVPush SCH (10:56)
[2020-03-28] MEDS: ENOXAPARIN 40 MG/0.4 ML SQ SCH (13:24)
--- NOTE | 2020-03-28 13:42 | NUR ---
TF Recommendations: Vital HP ON propofol: 50 ml/hr OFF propofol: 55 ml/hr
[2020-03-28] MEDS: TRAZODONE 100MG TABLET PO SCH (19:57)
[2020-03-28] MEDS: SIMVASTATIN 40 MG TABLET PO SCH (19:57)
[2020-03-28] MEDS: AMITRIPTYLINE 25 MG TABLET PO SCH (19:59)
[2020-03-29 03:56] LABS: MEAN CORPUSCULAR HGB CONC 32.8 g/dL (32.4-35.8); MEAN PLATELET VOLUME 8.9 fL (7.4-10.4); PLATELET COUNT 309 x10^3/uL (130-400); RED BLOOD COUNT 3.62 x10^6/uL (3.82-5.3); RED CELL DISTRIBUTION WIDTH 13.2 % (9.6-15.2)
[2020-03-29 04:00] VITALS: BP 108/59
[2020-03-29 04:08] LABS: ALANINE AMINOTRANSFERASE 19 U/L (12-78); ALBUMIN 2.3 g/dL (3.4-5.0); ANION GAP 9 mmol/L (5-15); CALCIUM 8.6 mg/dL (8.5-10.1); CHLORIDE 101 mmol/L (98-107); CREATININE 1.59 mg/dL (0.55-1.02)
[2020-03-29 04:10] LABS: ALKALINE PHOSPHATASE 80 U/L (45-117); BILIRUBIN,TOTAL 0.4 mg/dL (0.2-1.0); TOTAL PROTEIN 6.4 g/dL (6.4-8.2)
[2020-03-29 04:15] LABS: MD YES
[2020-03-29 04:16] LABS: <PLATELET ESTIMATE> ADEQUATE; <PLT MORPHOLOGY> NORMAL PLT MORPH; <RBC MORPHOLOGY> NORMAL; BAND#(MANUAL) 0.81 x10^3/uL; BANDS%(MANUAL) 3 % (0-7); LYMPH#(MANUAL) 0.27 x10^3/uL (1-3.4); LYMPHS% (MANUAL) 1 % (22-44); METAMYELOCYTES# (MANUAL) 0.54 x10^3/uL (0-0); METAMYELOCYTES% (MANUAL) 2 % (0-1); MONOS#(MANUAL) 1.08 x10^3/uL (0.3-2.7); MONOS% (MANUAL) 4 % (2-9); SEG#(MANUAL) 24.21 x10^3/uL (1.8-6.8); SEGS% (MANUAL) 90 % (42-75)
[2020-03-29] MEDS: LEVOTHYROXINE 100 MCG TABLET PO SCH (04:58)
[2020-03-29] MEDS: ASCORBIC ACID 500 MG TABLET PO SCH ×3 (04:58→15:59)
[2020-03-29] MEDS: PROPOFOL 100 ML IV PRN ×3 (04:59→19:12)
[2020-03-29] MEDS: [UNRECOGNIZED DRUG - OTHER] PO SCH (09:00)
[2020-03-29] MEDS: MULTIVITAMIN 1 TABLET PO SCH (09:44)
[2020-03-29] MEDS: SENNA/DOCUSATE TABLET PO SCH (09:44)
[2020-03-29] MEDS: CHOLECALCIFEROL 5,000u TAB PO SCH (09:44)
[2020-03-29] MEDS: SODIUM CHLORIDE 1 GM TABLET PO SCH ×2 (09:44→19:13)
[2020-03-29] MEDS: TAMSULOSIN 0.4 MG CAP.ER.24H PO SCH (09:44)
[2020-03-29] MEDS: CITALOPRAM 20 MG TABLET PO SCH (09:44)
[2020-03-29] MEDS: AMLODIPINE 5 MG TABLET PO SCH (09:44)
[2020-03-29] MEDS: SODIUM CHLORIDE FLUSH 10ML SYR IVF SCH ×2 (09:45→19:14)
[2020-03-29] MEDS: ZINC SULFATE 220 MG CAPSULE PO SCH (09:45)
[2020-03-29] MEDS: DICLOFENAC SODIUM 75 MG TABLET.DR PO SCH ×2 (09:45→19:13)
[2020-03-29 10:10] VITALS: BP 122/55
[2020-03-29] MEDS: CLOBETASOL PROPIONATE CRM 0.05%, 15GM TP SCH (10:10)
[2020-03-29] MEDS: ALBUTEROL/IPRATROPIUM 2.5MG/0.5MG, 3 ML NPPB SCH ×4 (11:30→22:37)
[2020-03-29] MEDS ORDERED: ALBUTEROL/IPRATROPIUM 2.5MG/0.5MG, 3 ML ONE (11:32)
[2020-03-29] MEDS: PANTOPRAZOLE 40 MG IV IVPush SCH (15:59)
[2020-03-29] MEDS: ENOXAPARIN 40 MG/0.4 ML SQ SCH (16:00)
[2020-03-29] MEDS: TRAZODONE 100MG TABLET PO SCH (19:12)
[2020-03-29] MEDS: SIMVASTATIN 40 MG TABLET PO SCH (19:12)
[2020-03-29] MEDS: ACETAMINOPHEN 325 MG TABLET PO PRN ×2 (19:12→22:56)
[2020-03-29] MEDS: AMITRIPTYLINE 25 MG TABLET PO SCH (19:13)
[2020-03-29] MEDS ORDERED: NOREPINEPHRINE 8 MG in SODIUM CHLORIDE 0.9% 242 ML IV PRN (20:00)
[2020-03-29] MEDS ORDERED: SODIUM CHLORIDE 0.9% 1,000ML IVBOLUS ONE (20:00)
[2020-03-29] MEDS: VASOPRESSIN 20 UNIT in SODIUM CHLORIDE 0.9% 99 ML IV PRN (22:26)
[2020-03-29] MEDS: NOREPINEPHRINE 32 MG in SODIUM CHLORIDE 0.9% 218 ML IV PRN (22:27)
[2020-03-29] MEDS ORDERED: SODIUM BICARBONATE 1 MEQ/ML, 50ML VIAL IVPush STA ×4 (22:47→23:28)
[2020-03-29] MEDS ORDERED: SODIUM BICARB 8.4%, 50ML SYRINGE ONE (22:52)
[2020-03-29] MEDS ORDERED: PHENYLEPHRINE 50 MG in SODIUM CHLORIDE 0.9% 245 ML IV PRN (23:00)
[2020-03-29] MEDS ORDERED: VANCOMYCIN PER PHARMACY MC PRN (23:00)
[2020-03-29] MEDS ORDERED: PIPERACILLIN/TAZO/PMX 3.375GM 50 ML IV SCH (23:00)
[2020-03-29 23:26] LABS: MICROSCOPIC NOT IND
[2020-03-29] MEDS ORDERED: PHARMACOKINETIC MONITORING MC PRN (23:30)
[2020-03-29] MEDS ORDERED: SODIUM BICARBONATE 8.4% 100 MEQ in DEXTROSE 5% 1,000 ML IV SCH (23:30)
[2020-03-29] MEDS ORDERED: VANCOMYCIN 2,300 MG in SODIUM CHLORIDE 0.9% 500 ML IV SCH (23:45)
[2020-03-30] MEDS ORDERED: SODIUM CHLORIDE 0.9% 1,000ML IVBOLUS ONE
[2020-03-30] MEDS: ALBUTEROL/IPRATROPIUM 2.5MG/0.5MG, 3 ML NPPB SCH (01:53)
[2020-03-30] MEDS: NOREPINEPHRINE 32 MG in SODIUM CHLORIDE 0.9% 218 ML IV PRN (02:26)
[2020-03-30] MEDS: VASOPRESSIN 20 UNIT in SODIUM CHLORIDE 0.9% 99 ML IV PRN (02:26)
[2020-03-30] MEDS ORDERED: EPINEPHRINE SYRINGE 0.1 MG/ML, 10ML ONE ×2 (03:00→05:14)
[2020-03-30] MEDS ORDERED: AMIODARONE 50 MG/ML, 3ML ONE (03:00)
[2020-03-30] MEDS ORDERED: CODE BLUE RESPONSE XX ONE (05:30)
== END 2020-03-30 04:20 | disposition expired | DRG 871 ==
LOC: ED 12:48 → EDIP 12:56 → 3N 18:44 → CCU 03-23 05:10 → ICU 03-25 23:45
PROVIDERS: ADMIT Family Medicine; ATTEND Internal Medicine
PROC: XW033E5 Introduction of Remdesivir Anti-infective into Peripheral Vein, Percutaneous Approach, New Technology Group 5 (ICD-10-PCS; principal; 2020-03-23)
PROC: 5A09557 Assistance with Respiratory Ventilation, Greater than 96 Consecutive Hours, Continuous Positive Airway Pressure (ICD-10-PCS; 2020-03-23)
PROC: 5A1945Z Respiratory Ventilation, 24-96 Consecutive Hours (ICD-10-PCS; 2020-03-27)
PROC: 0BH17EZ Insertion of Endotracheal Airway into Trachea, Via Natural or Artificial Opening (ICD-10-PCS; 2020-03-27)
PROC: 02HV33Z Insertion of Infusion Device into Superior Vena Cava, Percutaneous Approach (ICD-10-PCS; 2020-03-27)
PROC: B548ZZA Ultrasonography of Superior Vena Cava, Guidance (ICD-10-PCS; 2020-03-27)
PROC: 0T9B70Z Drainage of Bladder with Drainage Device, Via Natural or Artificial Opening (ICD-10-PCS; 2020-03-29)
DX: A41.89 Other specified sepsis (principal); G93.41 Metabolic encephalopathy; J12.89 Other viral pneumonia; J15.9 Unspecified bacterial pneumonia; J96.01 Acute respiratory failure with hypoxia; U07.1 COVID-19; D84.9 Immunodeficiency, unspecified; E87.1 Hypo-osmolality and hyponatremia; E87.2 Acidosis; F11.20 Opioid dependence, uncomplicated; E03.9 Hypothyroidism, unspecified; F32.9 Major depressive disorder, single episode, unspecified; G89.29 Other chronic pain; H81.09 Meniere's disease, unspecified ear; I12.9 Hypertensive chronic kidney disease with stage 1 through stage 4 chronic kidney disease, or unspecified chronic kidney disease; I27.20 Pulmonary hypertension, unspecified; I46.9 Cardiac arrest, cause unspecified; K21.9 Gastro-esophageal reflux disease without esophagitis; K58.0 Irritable bowel syndrome with diarrhea; M32.9 Systemic lupus erythematosus, unspecified; M35.00 Sjogren syndrome, unspecified; M35.3 Polymyalgia rheumatica; M54.9 Dorsalgia, unspecified; N18.9 Chronic kidney disease, unspecified; R65.20 Severe sepsis without septic shock; Z90.710 Acquired absence of both cervix and uterus; Z88.5 Allergy status to narcotic agent; Z91.013 Allergy to seafood
CPT/HCPCS: 36415; 36573; 36600; 71045; 80048; 80053; 81003; 82040; 82728; 82803; 83605; 83615; 83735; 84145; 84439; 84443; 84478; 84484; 85025; 85049; 85379; 85384; 85610; 85651; 85730; 86140; 87040; 87070; 87077; 87081; 87147; 87186; 87205; 93005; 94002; 94003; 94640; 94660; 96361; 96374; 96375; 99291; G0378; J0696; J1100; J1650; J1885; J1940; J2250; J2405; J2543; J2704; J3010; J3370; J7070; Q0162; C1751; C9113; J0282; J2370; J7030; J7040; J7050; U0003